=== PATIENT | female | born 1970 ===

== ENCOUNTER 2022-10-13 13:58 | Emergency (ER) | payer MEDICAID, SELFPAY ==
--- NOTE | ~2022-10-13 | XR_ITS ---
EXAMINATION: XR CHEST CLINICAL INFORMATION: Short of breath. Chest pain. COMPARISON: None TECHNIQUE: 2 views of the chest were obtained. FINDINGS: Median sternotomy wires appear intact. The lungs are well expanded. There is no focal consolidation, edema, or effusion. No pneumothorax. The cardiomediastinal silhouette is within normal limits. No acute osseous abnormality. XR/XR chest 2V IMPRESSION: Clear lungs.
[2022-10-13 14:31] VITALS: BP 123/81; PULSE 72; RESP 18; TEMP 37.3; O2SAT 100; BMI 21.4
--- NOTE | 2022-10-13 14:33 | ED_ITS ---
HPI - SOB/Dyspnea General Chief Complaint: Dyspnea <MONICA Mariee - Last Filed: 10/13/22 14:39> Stated Complaint: Difficulty breathing <MONICA Mariee - Last Filed: 10/13/22 14:39> Time Seen by Provider: 10/13/22 18:44 <MONICA Mariee - Last Filed: 10/13/22 14:39> Source: patient <rTupti Deleon MD - Last Filed: 10/13/22 20:13> Mode of arrival: ambulatory <Trupti Deleon MD - Last Filed: 10/13/22 20:13> Limitations: no limitations <Trupti Deleon MD - Last Filed: 10/13/22 20:13> History of Present Illness HPI Narrative: Patient comes in the emergency room complaining fatigue, cough for 3 days, shortness of breath. Patient states that approximately a week ago she moved from [facility]. Patient states that she has history of a mitral valve replacement which was done in the [place] [facility], seizure disorder, she has not had any of her medications, reports no recent seizures. Patient's family also reports that the patient has had a lot of anxiety lately. Patient states that occasionally she has chest tightness. At this time, patient reports no chest pain, shortness of breath or tightness. <Trupti Deleon MD - Last Filed: 10/13/22 20:13> Related Data Allergies/Adverse Reactions: Allergies Allergy/AdvReac Type Severity Reaction Status Date / Time lamotrigine [From Lamictal] Allergy Rash Verified 10/13/22 14:36 <MONICA Mariee - Last Filed: 10/13/22 14:39> Review of Systems Review of Systems: Constitutional : No Weight loss, No Fever, No Chills, No Night Sweats, complaining of fatigue ENT/Mouth : No Hearing loss, No Ear Pain, No Nasal Congestion, No Sinus Pain, No Hoarseness, No sore throat, No Rhinorrhea, No Swallowing Difficulty Eyes: No Eye Pain, No Swelling, No Redness, No Foreign Body, No Discharge, No Vision Changes Cardiovascular : Complaining of chest tightness, no chest pain, no shortness of breath Respiratory : Complaining of Cough, No Sputum, No Wheezing, No Smoke Exposure, No Dyspnea Gastrointestinal : No Nausea, No Vomiting, No Diarrhea, No Constipation, No abdominal Pain, No Hematochezia, No Melena Genitourinary : no irregular bleeding, No Dysuria, No Urinary Frequency, No Hematuria, No Urinary Incontinence, No Urgency, No Flank Pain, No Urinary Flow Changes, No Hesitancy Musculoskeletal : No joint pain, No Myalgias, No Joint Swelling Skin : No Skin Lesions, No rash Neuro : No Weakness, No Numbness, No Paresthesias, No Loss of Consciousness, No Dizziness, No Headache Psych : No Anxiety/Panic, No Depression, No SI/HI/AH/VH, No Social Issues, Heme/Lymph: No Bruising, No Bleeding,No Lymphadenopathy Endocrine : No Polyuria, No Polydipsia, No Temperature Intolerance <Trupti Deleon MD - Last Filed: 10/13/22 20:13> [facility], [facility] Past Medical History Medical History: Medical History (Updated 10/13/22 @ 20:13 by Trputi Deleon MD) Anxiety Seizure disorder <MONICA Mariee - Last Filed: 10/13/22 14:39> Surgical History: Surgical History (Updated 10/13/22 @ 18:57 by Trupti Deleon MD) Mitral valve replaced <MONICA Mariee - Last Filed: 10/13/22 14:39> Physical Exam Vital Signs: Vital Signs: Last Vital Signs Temp 99.2 F 10/13/22 14:31 Pulse 72 10/13/22 14:31 Resp 18 10/13/22 14:31 BP 123/81 10/13/22 14:31 Pulse Ox 100 10/13/22 14:31 O2 Del Method 10/13/22 14:31 BMI result Body Mass Index 21.4 <MONICA Mariee - Last Filed: 10/13/22 14:39> Vital Signs: Last Vital Signs Temp 99.2 F 10/13/22 14:31 Pulse 72 10/13/22 14:31 Resp 18 10/13/22 14:31 BP 123/81 10/13/22 14:31 Pulse Ox 100 10/13/22 14:31 O2 Del Method 10/13/22 14:31 BMI result Body Mass Index 21.4 <Trupti Deleon MD - Last Filed: 10/13/22 20:13> Const: Other: Appearance: Alert. Oriented X3. No acute distress. Eyes: Pupils equal, round and reactive to light. ENT: Pharynx normal. Neck: Normal inspection. Neck supple. No lymph nodes noted. No crepitus CVS: Normal heart rate and rhythm. Pulses normal. Normal S1 and S2, +3 systolic murmur left sternal border Respiratory: No respiratory distress. Breath sounds normal. No Wheezing. No rales Abdomen: Soft and nontender. No rigidity. No distention. Digital rectal exam: Brown stool Skin: Skin warm and dry. Normal skin color. Normal skin turgor. Extremities: No lower extremity edema. No Lacerations. No Rash Neuro: Oriented X 3. No motor deficit. No sensory deficit. Moving all extremities. No slurred speech. CN 2 through 12 grossly intact Psych: calm, cooperative, normal affect <Trupti Deleon MD - Last Filed: 10/13/22 20:13> Course Course Course Narrative: RME - 52 yo female with history of open heart surgery for mitral valve replacement, seizure disorder on keppra who presents to the ER for evaluation of fatigue and SOB, worsening over the last couple of days. Mild associated chest pain, difficulty taking a deep breath, and cough. Noncompliant with meds as she is new to the area and does not have any. VSS in triage. CXR, labs, EKG and viral swabs ordered. <MONICA Mariee - Last Filed: 10/13/22 14:39> Medical Decision Making Medical Decision Making MDM Narrative: -troponin 1. Is negative, we will go ahead and repeat troponin 2 due to patient's cardiac history. Patient does not have any chest pain at this time. Patient states she took full-dose aspirin prior to arrival. -troponin to pending -I discussed with the patient and her cousin that her hemoglobin is a bit on the lower side, we do not have any prior labs to compare to. Patient states that she has been told that she had is anemic and has had blood transfusions in the past. Patient does not know her reason for anemia, denies melena, black stool or abdominal pain. -occult stool test/guaiac pending -guaiac negative, troponin 2. Negative, chest x-ray shows clear lungs -patient likely has a viral syndrome. <Trupti Deleon MD - Last Filed: 10/13/22 20:13> Differential Diagnosis Differential Diagnoses: The differential diagnosis associated with the presentation includes (Viral syndrome, anemia, COVID) <Trupti Deleon MD - Last Filed: 10/13/22 20:13> Lab Data MDM Lab Attestation statement: I reviewed the patient's lab results. <Trupti Deleon MD - Last Filed: 10/13/22 20:13> Result Diagrams: 10/13/22 14:52 10/13/22 14:52 <MONICA Mariee - Last Filed: 10/13/22 14:39> Labs: Lab Results 10/13/22 10/13/22 10/13/22 Range/Units 14:52 14:52 14:52 WBC 3.6 L (4.8-10.8) X10*3/uL RBC 4.41 (4.20-5.50) X10*6/uL Hgb 10.0 L (12.0-16.0) g/dl Hct 29.5 L (37.0-47.0) % MCV 66.9 L (80.0-98.0) fL MCH 22.7 L (27.0-33.0) pg MCHC 33.9 (31.0-35.0) g/dl RDW 16.9 H (11.0-16.0) % Plt Count 169 (160-400) X10*3/uL MPV Not Reportable Immature Gran % (Auto) 0.0 (0.0-0.4) % Neut % (Auto) 43.3 L (45-73) % Lymph % (Auto) 43.5 H (20-40) % Crosby % (Auto) 9.3 (2-11) % Eos % (Auto) 3.1 (0-4) % Baso % (Auto) 0.8 (0-2) % Lymph # (Auto) 1.5 (1.2-4.9) X10*3/uL Crosby # (Auto) 0.3 (0.1-1.2) X10*3/uL Eos # (Auto) 0.1 (0.0-0.4) X10*3/uL Baso # (Auto) 0.0 (0.0-0.2) X10*3/uL Abs Immat Gran (auto) 0.00 (0.00-0.03) X10*3/uL Absolute Neuts (auto) 1.5 L (2.0-8.3) x10*3/uL Absolute Nucleated RBC 0.000 (0.0-0.012) X10*3/uL Nucleated RBC % (auto) 0.0 (0.0-0.2) /100WBC Sodium 140 (135-145) mmol/L Potassium 3.6 (3.3-5.1) mmol/L Chloride 107 (96-108) mmol/L Carbon Dioxide 25 (22-29) mmol/L Anion Gap 12 (12-20) BUN 12 (9-16) mg/dL Creatinine 0.71 (0.5-1.4) mg/dL Estim Creat Clear Calc 74.1 Estimated GFR > 60 Random Glucose 99 (60-115) mg/dL Calcium 9.1 (8.4-10.2) mg/dL Magnesium 1.8 (1.6-2.6) mg/dL Total Bilirubin 0.5 (0.0-1.0) mg/dL Direct Bilirubin 0.2 (0.0-0.5) mg/dL AST 21 (5-31) U/L ALT 11 (0-31) U/L Alkaline Phosphatase 45 (39-117) U/L Troponin I High Sens < 3.5 (<3.5-17.0) ng/L B-Natriuretic Peptide (<100) pg/mL Total Protein 6.8 (6.5-8.0) g/dL Albumin 4.0 (3.5-5.0) g/dL Stool Occult Blood (NEGATIVE) Influenza Type A (PCR) (Negative) Influenza Type B (PCR) (Negative) RSV RNA Qual (PCR) (Negative) SARS-CoV-2 RNA (RT-PCR) (Negative) 10/13/22 10/13/22 10/13/22 Range/Units 14:52 14:52 19:09 WBC (4.8-10.8) X10*3/uL RBC (4.20-5.50) X10*6/uL Hgb (12.0-16.0) g/dl Hct (37.0-47.0) % MCV (80.0-98.0) fL MCH (27.0-33.0) pg MCHC (31.0-35.0) g/dl RDW (11.0-16.0) % Plt Count (160-400) X10*3/uL MPV Immature Gran % (Auto) (0.0-0.4) % Neut % (Auto) (45-73) % Lymph % (Auto) (20-40) % Crosby % (Auto) (2-11) % Eos % (Auto) (0-4) % Baso % (Auto) (0-2) % Lymph # (Auto) (1.2-4.9) X10*3/uL Crosby # (Auto) (0.1-1.2) X10*3/uL Eos # (Auto) (0.0-0.4) X10*3/uL Baso # (Auto) (0.0-0.2) X10*3/uL Abs Immat Gran (auto) (0.00-0.03) X10*3/uL Absolute Neuts (auto) (2.0-8.3) x10*3/uL Absolute Nucleated RBC (0.0-0.012) X10*3/uL Nucleated RBC % (auto) (0.0-0.2) /100WBC Sodium (135-145) mmol/L Potassium (3.3-5.1) mmol/L Chloride (96-108) mmol/L Carbon Dioxide (22-29) mmol/L Anion Gap (12-20) BUN (9-16) mg/dL Creatinine (0.5-1.4) mg/dL Estim Creat Clear Calc Estimated GFR Random Glucose (60-115) mg/dL Calcium (8.4-10.2) mg/dL Magnesium (1.6-2.6) mg/dL Total Bilirubin (0.0-1.0) mg/dL Direct Bilirubin (0.0-0.5) mg/dL AST (5-31) U/L ALT (0-31) U/L Alkaline Phosphatase (39-117) U/L Troponin I High Sens < 3.5 (<3.5-17.0) ng/L B-Natriuretic Peptide 139 H (<100) pg/mL Total Protein (6.5-8.0) g/dL Albumin (3.5-5.0) g/dL Stool Occult Blood (NEGATIVE) Influenza Type A (PCR) NEGATIVE (Negative) Influenza Type B (PCR) NEGATIVE (Negative) RSV RNA Qual (PCR) NEGATIVE (Negative) SARS-CoV-2 RNA (RT-PCR) NEGATIVE (Negative) 10/13/22 Range/Units 19:10 WBC (4.8-10.8) X10*3/uL RBC (4.20-5.50) X10*6/uL Hgb (12.0-16.0) g/dl Hct (37.0-47.0) % MCV (80.0-98.0) fL MCH (27.0-33.0) pg MCHC (31.0-35.0) g/dl RDW (11.0-16.0) % Plt Count (160-400) X10*3/uL MPV Immature Gran % (Auto) (0.0-0.4) % Neut % (Auto) (45-73) % Lymph % (Auto) (20-40) % Crosby % (Auto) (2-11) % Eos % (Auto) (0-4) % Baso % (Auto) (0-2) % Lymph # (Auto) (1.2-4.9) X10*3/uL Crosby # (Auto) (0.1-1.2) X10*3/uL Eos # (Auto) (0.0-0.4) X10*3/uL Baso # (Auto) (0.0-0.2) X10*3/uL Abs Immat Gran (auto) (0.00-0.03) X10*3/uL Absolute Neuts (auto) (2.0-8.3) x10*3/uL Absolute Nucleated RBC (0.0-0.012) X10*3/uL Nucleated RBC % (auto) (0.0-0.2) /100WBC Sodium (135-145) mmol/L Potassium (3.3-5.1) mmol/L Chloride (96-108) mmol/L Carbon Dioxide (22-29) mmol/L Anion Gap (12-20) BUN (9-16) mg/dL Creatinine (0.5-1.4) mg/dL Estim Creat Clear Calc Estimated GFR Random Glucose (60-115) mg/dL Calcium (8.4-10.2) mg/dL Magnesium (1.6-2.6) mg/dL Total Bilirubin (0.0-1.0) mg/dL Direct Bilirubin (0.0-0.5) mg/dL AST (5-31) U/L ALT (0-31) U/L Alkaline Phosphatase (39-117) U/L Troponin I High Sens (<3.5-17.0) ng/L B-Natriuretic Peptide (<100) pg/mL Total Protein (6.5-8.0) g/dL Albumin (3.5-5.0) g/dL Stool Occult Blood NEGATIVE (NEGATIVE) Influenza Type A (PCR) (Negative) Influenza Type B (PCR) (Negative) RSV RNA Qual (PCR) (Negative) SARS-CoV-2 RNA (RT-PCR) (Negative) <MONICA Mariee - Last Filed: 10/13/22 14:39> Lab Results 10/13/22 10/13/22 10/13/22 Range/Units 14:52 14:52 14:52 WBC 3.6 L (4.8-10.8) X10*3/uL RBC 4.41 (4.20-5.50) X10*6/uL Hgb 10.0 L (12.0-16.0) g/dl Hct 29.5 L (37.0-47.0) % MCV 66.9 L (80.0-98.0) fL MCH 22.7 L (27.0-33.0) pg MCHC 33.9 (31.0-35.0) g/dl RDW 16.9 H (11.0-16.0) % Plt Count 169 (160-400) X10*3/uL MPV Not Reportable Immature Gran % (Auto) 0.0 (0.0-0.4) % Neut % (Auto) 43.3 L (45-73) % Lymph % (Auto) 43.5 H (20-40) % Crosby % (Auto) 9.3 (2-11) % Eos % (Auto) 3.1 (0-4) % Baso % (Auto) 0.8 (0-2) % Lymph # (Auto) 1.5 (1.2-4.9) X10*3/uL Crosby # (Auto) 0.3 (0.1-1.2) X10*3/uL Eos # (Auto) 0.1 (0.0-0.4) X10*3/uL Baso # (Auto) 0.0 (0.0-0.2) X10*3/uL Abs Immat Gran (auto) 0.00 (0.00-0.03) X10*3/uL Absolute Neuts (auto) 1.5 L (2.0-8.3) x10*3/uL Absolute Nucleated RBC 0.000 (0.0-0.012) X10*3/uL Nucleated RBC % (auto) 0.0 (0.0-0.2) /100WBC Sodium 140 (135-145) mmol/L Potassium 3.6 (3.3-5.1) mmol/L Chloride 107 (96-108) mmol/L Carbon Dioxide 25 (22-29) mmol/L Anion Gap 12 (12-20) BUN 12 (9-16) mg/dL Creatinine 0.71 (0.5-1.4) mg/dL Estim Creat Clear Calc 74.1 Estimated GFR > 60 Random Glucose 99 (60-115) mg/dL Calcium 9.1 (8.4-10.2) mg/dL Magnesium 1.8 (1.6-2.6) mg/dL Total Bilirubin 0.5 (0.0-1.0) mg/dL Direct Bilirubin 0.2 (0.0-0.5) mg/dL AST 21 (5-31) U/L ALT 11 (0-31) U/L Alkaline Phosphatase 45 (39-117) U/L Troponin I High Sens < 3.5 (<3.5-17.0) ng/L B-Natriuretic Peptide (<100) pg/mL Total Protein 6.8 (6.5-8.0) g/dL Albumin 4.0 (3.5-5.0) g/dL Stool Occult Blood (NEGATIVE) Influenza Type A (PCR) (Negative) Influenza Type B (PCR) (Negative) RSV RNA Qual (PCR) (Negative) SARS-CoV-2 RNA (RT-PCR) (Negative) 01/10/13/22 10/13/22 Range/Units 14:52 14:52 19:09 WBC (4.8-10.8) X10*3/uL RBC (4.20-5.50) X10*6/uL Hgb (12.0-16.0) g/dl Hct (37.0-47.0) % MCV (80.0-98.0) fL MCH (27.0-33.0) pg MCHC (31.0-35.0) g/dl RDW (11.0-16.0) % Plt Count (160-400) X10*3/uL MPV Immature Gran % (Auto) (0.0-0.4) % Neut % (Auto) (45-73) % Lymph % (Auto) (20-40) % Crosby % (Auto) (2-11) % Eos % (Auto) (0-4) % Baso % (Auto) (0-2) % Lymph # (Auto) (1.2-4.9) X10*3/uL Crosby # (Auto) (0.1-1.2) X10*3/uL Eos # (Auto) (0.0-0.4) X10*3/uL Baso # (Auto) (0.0-0.2) X10*3/uL Abs Immat Gran (auto) (0.00-0.03) X10*3/uL Absolute Neuts (auto) (2.0-8.3) x10*3/uL Absolute Nucleated RBC (0.0-0.012) X10*3/uL Nucleated RBC % (auto) (0.0-0.2) /100WBC Sodium (135-145) mmol/L Potassium (3.3-5.1) mmol/L Chloride (96-108) mmol/L Carbon Dioxide (22-29) mmol/L Anion Gap (12-20) BUN (9-16) mg/dL Creatinine (0.5-1.4) mg/dL Estim Creat Clear Calc Estimated GFR Random Glucose (60-115) mg/dL Calcium (8.4-10.2) mg/dL Magnesium (1.6-2.6) mg/dL Total Bilirubin (0.0-1.0) mg/dL Direct Bilirubin (0.0-0.5) mg/dL AST (5-31) U/L ALT (0-31) U/L Alkaline Phosphatase (39-117) U/L Troponin I High Sens < 3.5 (<3.5-17.0) ng/L B-Natriuretic Peptide 139 H (<100) pg/mL Total Protein (6.5-8.0) g/dL Albumin (3.5-5.0) g/dL Stool Occult Blood (NEGATIVE) Influenza Type A (PCR) NEGATIVE (Negative) Influenza Type B (PCR) NEGATIVE (Negative) RSV RNA Qual (PCR) NEGATIVE (Negative) SARS-CoV-2 RNA (RT-PCR) NEGATIVE (Negative) 10/13/22 Range/Units 19:10 WBC (4.8-10.8) X10*3/uL RBC (4.20-5.50) X10*6/uL Hgb (12.0-16.0) g/dl Hct (37.0-47.0) % MCV (80.0-98.0) fL MCH (27.0-33.0) pg MCHC (31.0-35.0) g/dl RDW (11.0-16.0) % Plt Count (160-400) X10*3/uL MPV Immature Gran % (Auto) (0.0-0.4) % Neut % (Auto) (45-73) % Lymph % (Auto) (20-40) % Crosby % (Auto) (2-11) % Eos % (Auto) (0-4) % Baso % (Auto) (0-2) % Lymph # (Auto) (1.2-4.9) X10*3/uL Crosby # (Auto) (0.1-1.2) X10*3/uL Eos # (Auto) (0.0-0.4) X10*3/uL Baso # (Auto) (0.0-0.2) X10*3/uL Abs Immat Gran (auto) (0.00-0.03) X10*3/uL Absolute Neuts (auto) (2.0-8.3) x10*3/uL Absolute Nucleated RBC (0.0-0.012) X10*3/uL Nucleated RBC % (auto) (0.0-0.2) /100WBC Sodium (135-145) mmol/L Potassium (3.3-5.1) mmol/L Chloride (96-108) mmol/L Carbon Dioxide (22-29) mmol/L Anion Gap (12-20) BUN (9-16) mg/dL Creatinine (0.5-1.4) mg/dL Estim Creat Clear Calc Estimated GFR Random Glucose (60-115) mg/dL Calcium (8.4-10.2) mg/dL Magnesium (1.6-2.6) mg/dL Total Bilirubin (0.0-1.0) mg/dL Direct Bilirubin (0.0-0.5) mg/dL AST (5-31) U/L ALT (0-31) U/L Alkaline Phosphatase (39-117) U/L Troponin I High Sens (<3.5-17.0) ng/L B-Natriuretic Peptide (<100) pg/mL Total Protein (6.5-8.0) g/dL Albumin (3.5-5.0) g/dL Stool Occult Blood NEGATIVE (NEGATIVE) Influenza Type A (PCR) (Negative) Influenza Type B (PCR) (Negative) RSV RNA Qual (PCR) (Negative) SARS-CoV-2 RNA (RT-PCR) (Negative) <Trupti Deleon MD - Last Filed: 10/13/22 20:13> Independent Interpretation I performed an independent interpretation of an: EKG (Sinus bradycardia, heart rate 59, no ST segment depression or elevation, no T-wave inversion, QTC 441) and Plain X-Ray (Sternotomy wires present, no infiltrates) <Trupti Deleon MD - Last Filed: 10/13/22 20:13> Radiology Impression Radiologist Impression: FINDINGS: Median sternotomy wires appear intact. The lungs are well expanded. There is no focal consolidation, edema, or effusion. No pneumothorax. The cardiomediastinal silhouette is within normal limits. No acute osseous abnormality. XR/XR chest 2V IMPRESSION: Clear lungs. <Trupti Deleon MD - Last Filed: 10/13/22 20:13> Discharge Plan Discharge Clinical Impression: Acute viral syndrome, Chronic anemia <MONICA Mariee - Last Filed: 10/13/22 14:39> Patient Disposition: Home, Self-Care <MONICA Mariee - Last Filed: 10/13/22 14:39> Instructions: Viral Syndrome (ED) <MONICA Mariee - Last Filed: 10/13/22 14:39> Additional Instructions: Please follow-up with your primary care physician tomorrow. If you have any worsening or new symptoms, please return to the emergency room or call 911 <MONICA Mariee - Last Filed: 10/13/22 14:39> Referrals: Jacky Moran MD [Physician] - 2 days (establish care) Bryan Garces MD [Physician] - 3 days <MONICA Mariee - Last Filed: 10/13/22 14:39>
--- NOTE | 2022-10-13 14:38 | ECG_ITS ---
Test Reason : CP Blood Pressure : / mmHG Vent. Rate : 059 BPM Atrial Rate : 059 BPM P-R Int : 168 ms QRS Dur : 076 ms QT Int : 446 ms P-R-T Axes : 034 073 056 degrees QTc Int : 441 ms Sinus bradycardia Possible Left atrial enlargement Borderline ECG No previous ECGs available Referred By: Rose Slade Electronically Signed By:HERRERA TOWNSEND
[2022-10-13 15:01] LABS: MANUAL DIFF FLAG NO
[2022-10-13 15:04] LABS: Basophils Percent Auto 0.8 % (0-2); Eosinophils Absolute Auto 0.1 X10*3/uL (0.0-0.4); Eosinophils Percent Auto 3.1 % (0-4); SCAN SMEAR FLAG 1
[2022-10-13 15:06] LABS: Hematocrit 29.5 % (37.0-47.0); Lymphocytes Absolute Auto 1.5 X10*3/uL (1.2-4.9); Lymphocytes Percent Auto 43.5 % (20-40); Mean Corpuscular HGB Conc 33.9 g/dl (31.0-35.0); Mean Corpuscular Hemoglobin 22.7 pg (27.0-33.0); Mean Corpuscular Volume 66.9 fL (80.0-98.0); Monocytes Absolute Auto 0.3 X10*3/uL (0.1-1.2); Monocytes Percent Auto 9.3 % (2-11); Neutrophils Absolute Auto 1.5 x10*3/uL (2.0-8.3); Neutrophils Percent Auto 43.3 % (45-73); Platelet Count 169 X10*3/uL (160-400); Red Blood Count 4.41 X10*6/uL (4.20-5.50); Red Cell Distribution Width 16.9 % (11.0-16.0); WBC ABN SCTR 1
[2022-10-13 15:26] LABS: Alanine Aminotransferase 11 U/L (0-31); Alkaline Phosphatase 45 U/L (39-117); Anion Gap 12 (12-20); Aspartate Amino Transferase 21 U/L (5-31); Bilirubin Direct 0.2 mg/dL (0.0-0.5); Bilirubin Total 0.5 mg/dL (0.0-1.0); Blood Urea Nitrogen 12 mg/dL (9-16); Calcium 9.1 mg/dL (8.4-10.2); Carbon Dioxide 25 mmol/L (22-29); Chloride 107 mmol/L (96-108); Creatinine Clr Calc Pharmacy 74.1; Estimated Glomerular Filt Rate > 60; Glucose Random 99 mg/dL (60-115); Magnesium 1.8 mg/dL (1.6-2.6); Potassium 3.6 mmol/L (3.3-5.1); Sodium 140 mmol/L (135-145); Total Protein 6.8 g/dL (6.5-8.0)
[2022-10-13 15:31] LABS: B Type Natriuretic Peptide 139 pg/mL (<100)
[2022-10-13 15:35] LABS: Troponin-I High Sensitivity < 3.5 ng/L (<3.5-17.0)
[2022-10-13 15:37] LABS: PLT ABN DIST 1; WBC ABN SCTR FOR CBC 1
[2022-10-13 15:39] LABS: White Blood Count 3.6 X10*3/uL (4.8-10.8)
[2022-10-13 15:53] LABS: Influenza A PCR NEGATIVE (Negative); Influenza B PCR NEGATIVE (Negative); Resp Syncy Virus RNA Qual PCR NEGATIVE (Negative); SARS COV2 PCR INHOUSE NEGATIVE (Negative)
--- NOTE | 2022-10-13 19:06 | PC.NURSE ---
assumed care of pt aox4 this nurse was present when Dr Deleon obtained stool sample for occult blood test no apparent distress, pt watching tv while resting quietly
[2022-10-13 19:22] LABS: OBS Int Ctl Valid YES; OBS1 NEGATIVE (NEGATIVE)
[2022-10-13 19:41] LABS: Troponin-I High Sensitivity < 3.5 ng/L (<3.5-17.0)
--- NOTE | 2022-10-13 20:39 | PC.NURSE ---
Pt a&o, no sob or chest pain. Reviewed discharge instructions with patient. pt verbalized understanding. Notified SABINO Engle
== END 2022-10-13 20:40 | disposition home or self-care (01) ==
PROVIDERS: Physician Assistant; Emergency Provider Emergency Medicine
DX: B34.9 Viral infection, unspecified (principal); D64.9 Anemia, unspecified; R07.89 Other chest pain; R06.02 Shortness of breath; R05.9 Cough, unspecified; Z20.822 Contact with and (suspected) exposure to COVID-19; Z20.828 Contact with and (suspected) exposure to other viral communicable diseases; Z79.899 Other long term (current) drug therapy
CPT/HCPCS: 0241U; 36415; 71046; 80048; 80076; 82272; 83735; 83880; 84484; 85025; 93005; 99283

== ENCOUNTER 2023-01-08 07:43 | Outpatient (REF) | payer MEDICAID, SELFPAY ==
[2023-01-08 10:58] LABS: MANUAL DIFF FLAG NO
[2023-01-08 11:06] LABS: Basophils Percent Auto 0.7 % (0-2); Eosinophils Absolute Auto 0.1 X10*3/uL (0.0-0.4); Eosinophils Percent Auto 2.5 % (0-4); Hematocrit 35.1 % (37.0-47.0); Hemoglobin 11.9 g/dl (12.0-16.0); Lymphocytes Percent Auto 49.4 % (20-40); Mean Corpuscular HGB Conc 33.9 g/dl (31.0-35.0); Mean Corpuscular Hemoglobin 24.3 pg (27.0-33.0); Mean Corpuscular Volume 71.8 fL (80.0-98.0); Monocytes Absolute Auto 0.5 X10*3/uL (0.1-1.2); Neutrophils Absolute Auto 1.4 x10*3/uL (2.0-8.3); Neutrophils Percent Auto 35.4 % (45-73); Platelet Count 179 X10*3/uL (160-400); Red Blood Count 4.89 X10*6/uL (4.20-5.50); White Blood Count 4.1 X10*3/uL (4.8-10.8)
[2023-01-08 11:24] LABS: Alanine Aminotransferase 19 U/L (0-31); Albumin Level 4.1 g/dL (3.5-5.0); Alkaline Phosphatase 47 U/L (39-117); Anion Gap 12 (12-20); Aspartate Amino Transferase 19 U/L (5-31); Bilirubin Total 0.8 mg/dL (0.0-1.0); Blood Urea Nitrogen 7 mg/dL (9-16); Calcium 9.2 mg/dL (8.4-10.2); Carbon Dioxide 27 mmol/L (22-29); Chloride 106 mmol/L (96-108); Cholesterol 234 mg/dL; Estimated Glomerular Filt Rate > 60; Glucose Fasting 86 mg/dL (60-99); HDL Cholesterol 54 mg/dL; LDL Cholesterol Calculated 167 mg/dl; Sodium 141 mmol/L (135-145); Triglycerides 68 mg/dL
[2023-01-08 11:40] LABS: Thyroid Stimulating Hormone 1.92 uIU/mL (0.32-4.0)
== END 2023-01-08 07:44 | disposition home or self-care (01) ==
LOC: HO.10HDL 07:43
PROVIDERS: Visit Provider Internal Medicine
DX: Z00.00 Encounter for general adult medical examination without abnormal findings (principal); R51.9 Headache, unspecified; H53.8 Other visual disturbances; G40.109 Localization-related (focal) (partial) symptomatic epilepsy and epileptic syndromes with simple partial seizures, not intractable, without status epilepticus; F32.2 Major depressive disorder, single episode, severe without psychotic features
CPT/HCPCS: 36415; 80053; 80061; 84443; 85025

== ENCOUNTER 2023-01-10 12:34 | Emergency (ER) | payer MEDICAID, SELFPAY ==
--- NOTE | ~2023-01-10 | XR_ITS ---
EXAMINATION: XR SOFT TISSUE NECK CLINICAL INDICATION: Pain in the side of the neck COMPARISON: None available. TECHNIQUE: 2 views of the soft tissue neck were obtained. FINDINGS: Soft tissue films of the neck demonstrate a normal larynx, pharynx and upper trachea. No soft tissue swelling or opaque foreign body is demonstrated. XR/XR soft tissue neck IMPRESSION: Unremarkable examination.
--- NOTE | ~2023-01-10 | XR_ITS ---
EXAMINATION: XR CHEST CLINICAL INFORMATION: Pain in the neck going into the chest COMPARISON: Chest x-ray on 10/13/2022 TECHNIQUE: 2 views of the chest were obtained. FINDINGS: No significant abnormality is noted involving the heart, lungs, mediastinum, bony thorax or soft tissues. Prior median sternotomy. XR/XR chest 2V IMPRESSION: Unremarkable examination.
[2023-01-10 12:42] VITALS: BP 131/88; PULSE 65; RESP 16; TEMP 37; O2SAT 100; BMI 24.2
--- NOTE | 2023-01-10 12:43 | ED_ITS ---
HPI - General Adult General Chief complaint: General Medical <Marshall Amezcua - Last Filed: 01/10/23 12:49> Stated complaint: Neck pain <Marshall Amezcua - Last Filed: 01/10/23 12:49> Time Seen by Provider: 01/10/23 13:09 <Marshall Amezcua - Last Filed: 01/10/23 12:49> History of Present Illness HPI narrative: Patient complains of neck pain that has been going on for months but now the pain is radiating into her left shoulder She had a mitral valve procedure many years ago and is concerned about her heart as a cousin recently passed from heart disease She denies any chest pain no exertional symptoms no shortness of breath no vomiting no diaphoresis no fainting no feeling faint no confusion no headache The neck pain is worse with movement and has been going on for a long time it is bilateral it hurts in both trapezius and lateral neck muscles She has no difficulty breathing or swallowing there is no numbness weakness tingling or radiation of pain no changes to bowel or bladder no muscle weakness no loss of sensation No associated back pain no abdominal pain no nausea vomiting or diarrhea <MONICA Monk - Last Filed: 01/10/23 16:54> Related Data Home medications: Previous Rx's Medication Instructions Recorded cyclobenzaprine 5 mg tablet 5 mg PO TID PRN muscle spasm #14 01/10/23 tabs ibuprofen 600 mg tablet 600 mg PO Q6H PRN pain #20 tabs 01/10/23 oxycodone 5 mg tablet 5 mg PO Q6H PRN pain #10 tabs 01/10/23 <Marshall Amezcua - Last Filed: 01/10/23 12:49> Allergies/adverse reactions: Allergies Allergy/AdvReac Type Severity Reaction Status Date / Time lamotrigine [From Lamictal] Allergy Rash Verified 10/13/22 14:36 <Marshall Amezcua - Last Filed: 01/10/23 12:49> [facility] Past Medical History [facility] Narrative: Patient has history of mitral valve replacement done years ago, no history of coronary artery disease <MONICA Monk - Last Filed: 01/10/23 16:54> Medical History: Medical History (Updated 01/10/23 @ 16:39 by MONICA Monk) Anxiety Seizure disorder <Marshall Amezcua - Last Filed: 01/10/23 12:49> Surgical History: Surgical History (Updated 10/13/22 @ 18:57 by Trupti Deleon MD) Mitral valve replaced <Marshall Seven - Last Filed: 01/10/23 12:49> Social History Social History: Social History Advance Directives: No Advance Directives Information Provided: No <Marshall Seven - Last Filed: 01/10/23 12:49> Physical Exam ED Vital Signs: Vital Signs - 24 hr 01/10/23 12:42 01/10/23 15:47 Temperature 98.6 F 98.3 F Pulse Rate 65 55 Respiratory Rate 16 18 Blood Pressure 131/88 135/83 Pulse Oximetry 100 100 Oxygen Delivery Method Room Air Room Air BMI result Body Mass Index 24.2 <Marshall Seven - Last Filed: 01/10/23 12:49> Vital Signs - 24 hr 01/10/23 12:42 01/10/23 15:47 Temperature 98.6 F 98.3 F Pulse Rate 65 55 Respiratory Rate 16 18 Blood Pressure 131/88 135/83 Pulse Oximetry 100 100 Oxygen Delivery Method Room Air Room Air BMI result Body Mass Index 24.2 <MONICA Monk - Last Filed: 01/10/23 16:54> General appearance no acute distress Eyes anicteric no pallor Pharynx no redness swelling or exudate mucous membranes are moist voice is normal no impairment of breathing or swallowing The neck was supple but there was discomfort with lateral movement both left and right, there was tenderness bilaterally to trapezius muscles and bilateral soft tissue neck muscles, there was no rash or redness to the skin Pain is easily reproduced with movement of the neck The chest wall was nontender There lungs were clear to auscultation bilateral full symmetric equal breath sounds Heart no murmur rate and rhythm regular Abdomen soft nontender Extremities no edema no calf tenderness or swelling Skin no rashes <MONICA Monk - Last Filed: 01/10/23 16:54> Course Course Course Narrative: 52 year old female presents for evaluation of bilateral neck pain. Denies trauma. She states that she has chronic neck pain that usually improves with Aspirin, but since yesterday the pain does not improve with aspirin. Denies sore throat or chest pain. Patient expresses concern over CAD due to family history. Patient has a flat affect and is a poor historian <Marshall Amezcua - Last Filed: 01/10/23 12:49> 52 year old female presents for evaluation of bilateral neck pain. Denies trauma. She states that she has chronic neck pain that usually improves with Aspirin, but since yesterday the pain does not improve with aspirin. Denies sore throat or chest pain. Patient expresses concern over CAD due to family history. Patient has a flat affect and is a poor historian Patient with easily reproducible musculoskeletal bilateral neck pain radiating into both shoulders was very concerned about her heart as she had a valve replacement of the mitral valve years ago and 2 of her close family members have of heart attacks in recent months She is not experiencing chest pain, she has no exertional symptoms no shortness of breath, no diaphoresis so symptoms are very atypical for cardiac disease EKG was a normal sinus rhythm with a rate of 60, FL interval was normal QRS duration was normal QTC normal EKG showed questionable left atrial enlargement, there were no acute ST changes no acute ischemic changes Troponin was under 2.7, negative for heart attack Chest x-ray and soft tissue neck x-rays were normal Chemistry showed no acute abnormalities CBC no acute abnormality Patient's symptoms are likely musculoskeletal neck pain, and some anxiety about the loss of her 2 family members from cardiac disease, today there is no evidence of heart attack and symptoms are very unlikely to be cardiac Well-appearing patient without cardiac symptoms no shortness of breath no chest pain is discharged diagnosis musculoskeletal neck pain <MONICA Monk - Last Filed: 01/10/23 16:54> Medical Decision Making Lab Data MDM Lab Attestation statement: I reviewed the patient's lab results. <MONICA Monk - Last Filed: 01/10/23 16:54> Result Diagrams: 01/10/23 15:41 01/10/23 15:41 <Marshall Amezcua - Last Filed: 01/10/23 12:49> Labs: Lab Results 01/10/23 01/10/23 01/10/23 Range/Units 15:41 15:41 15:41 WBC 3.9 L (4.8-10.8) X10*3/uL RBC 5.20 (4.20-5.50) X10*6/uL Hgb 12.7 (12.0-16.0) g/dl Hct 36.4 L (37.0-47.0) % MCV 70.0 L (80.0-98.0) fL MCH 24.4 L (27.0-33.0) pg MCHC 34.9 (31.0-35.0) g/dl RDW 23.0 H (11.0-16.0) % Plt Count 172 (160-400) X10*3/uL MPV Not Reportable Immature Gran % (Auto) Cancelled Neut % (Auto) Cancelled Lymph % (Auto) Cancelled [place] % (Auto) Cancelled Eos % (Auto) Cancelled Baso % (Auto) Cancelled Lymph # (Auto) Cancelled [place] # (Auto) Cancelled Eos # (Auto) Cancelled Baso # (Auto) Cancelled Abs Immat Gran (auto) Cancelled Absolute Neuts (auto) Cancelled Absolute Nucleated RBC 0.000 (0.0-0.012) X10*3/uL Nucleated RBC % (auto) 0.0 (0.0-0.2) /100WBC Neutrophils % (Manual) 52 (45-73) % Band Neutrophils % 0 L (3-5) % Lymphocytes % (Manual) 39 (20-40) % Monocytes % (Manual) 7 (2-11) % Eosinophils % (Manual) 2 (0-4) % Abs Neuts (Manual) 2.0 (2.0-8.3) X10*3/uL Lymphocytes # (Manual) 1.5 (1.2-4.9) X10*3/uL Monocytes # (Manual) 0.3 (0.1-1.2) X10*3/uL Eosinophils # (Manual) 0.1 (0.0-0.4) X10*3/uL Platelet Estimate NORMAL (NORMAL) Plt Morphology Comment NORMAL RBC Morphology NOTED Target Cells 1+ (5-14) /OIF Sodium 139 (135-145) mmol/L Potassium 3.5 (3.3-5.1) mmol/L Chloride 105 (96-108) mmol/L Carbon Dioxide 26 (22-29) mmol/L Anion Gap 12 (12-20) BUN 10 (9-16) mg/dL Creatinine 0.68 (0.5-1.4) mg/dL Estim Creat Clear Calc 77.4 Estimated GFR > 60 Random Glucose 84 (60-115) mg/dL Calcium 9.3 (8.4-10.2) mg/dL Total Bilirubin 0.8 (0.0-1.0) mg/dL Direct Bilirubin 0.2 (0.0-0.5) mg/dL AST 24 (5-31) U/L ALT 22 (0-31) U/L Alkaline Phosphatase 49 (39-117) U/L Troponin I High Sens < 2.7 (<3.5-17.0) ng/L Total Protein 7.4 (6.5-8.0) g/dL Albumin 4.4 (3.5-5.0) g/dL <Marshall Amezcua - Last Filed: 01/10/23 12:49> Lab Results 01/10/23 01/10/23 01/10/23 Range/Units 15:41 15:41 15:41 WBC 3.9 L (4.8-10.8) X10*3/uL RBC 5.20 (4.20-5.50) X10*6/uL Hgb 12.7 (12.0-16.0) g/dl Hct 36.4 L (37.0-47.0) % MCV 70.0 L (80.0-98.0) fL MCH 24.4 L (27.0-33.0) pg MCHC 34.9 (31.0-35.0) g/dl RDW 23.0 H (11.0-16.0) % Plt Count 172 (160-400) X10*3/uL MPV Not Reportable Immature Gran % (Auto) Cancelled Neut % (Auto) Cancelled Lymph % (Auto) Cancelled [place] % (Auto) Cancelled Eos % (Auto) Cancelled Baso % (Auto) Cancelled Lymph # (Auto) Cancelled [place] # (Auto) Cancelled Eos # (Auto) Cancelled Baso # (Auto) Cancelled Abs Immat Gran (auto) Cancelled Absolute Neuts (auto) Cancelled Absolute Nucleated RBC 0.000 (0.0-0.012) X10*3/uL Nucleated RBC % (auto) 0.0 (0.0-0.2) /100WBC Neutrophils % (Manual) 52 (45-73) % Band Neutrophils % 0 L (3-5) % Lymphocytes % (Manual) 39 (20-40) % Monocytes % (Manual) 7 (2-11) % Eosinophils % (Manual) 2 (0-4) % Abs Neuts (Manual) 2.0 (2.0-8.3) X10*3/uL Lymphocytes # (Manual) 1.5 (1.2-4.9) X10*3/uL Monocytes # (Manual) 0.3 (0.1-1.2) X10*3/uL Eosinophils # (Manual) 0.1 (0.0-0.4) X10*3/uL Platelet Estimate NORMAL (NORMAL) Plt Morphology Comment NORMAL RBC Morphology NOTED Target Cells 1+ (5-14) /OIF Sodium 139 (135-145) mmol/L Potassium 3.5 (3.3-5.1) mmol/L Chloride 105 (96-108) mmol/L Carbon Dioxide 26 (22-29) mmol/L Anion Gap 12 (12-20) BUN 10 (9-16) mg/dL Creatinine 0.68 (0.5-1.4) mg/dL Estim Creat Clear Calc 77.4 Estimated GFR > 60 Random Glucose 84 (60-115) mg/dL Calcium 9.3 (8.4-10.2) mg/dL Total Bilirubin 0.8 (0.0-1.0) mg/dL Direct Bilirubin 0.2 (0.0-0.5) mg/dL AST 24 (5-31) U/L ALT 22 (0-31) U/L Alkaline Phosphatase 49 (39-117) U/L Troponin I High Sens < 2.7 (<3.5-17.0) ng/L Total Protein 7.4 (6.5-8.0) g/dL Albumin 4.4 (3.5-5.0) g/dL <MONICA Monk - Last Filed: 01/10/23 16:54> Discharge Plan Discharge Clinical Impression: Neck pain <Marshall Amezcua - Last Filed: 01/10/23 12:49> Patient Disposition: Home, Self-Care <Marshall Amezcua - Last Filed: 01/10/23 12:49> Additional Instructions: Our workup today showed an EKG without any evidence of heart trouble The blood test troponin to check for heart attack was totally normal The symptoms are not typical symptoms of anything to do with your heart Her physical exam and vital signs were normal Blood tests did not show any worrisome findings We wrote a muscle relaxer and some pain medicine to use if needed Follow with primary doctor both for referral to environmental sustainability manager if needed as well as possible referral for physical therapy and further evaluation of her ongoing neck pain Return to the ER any time for any worse condition or any concerns <Marshall Amezcua - Last Filed: 01/10/23 12:49> Prescriptions: New ibuprofen 600 mg tablet 600 mg PO Q6H PRN (Reason: pain) Qty: 20 0RF cyclobenzaprine 5 mg tablet 5 mg PO TID PRN (Reason: muscle spasm) Qty: 14 0RF oxycodone 5 mg tablet 5 mg PO Q6H PRN (Reason: pain) Qty: 10 0RF Rx Instructions: Partial Fill upon patient request. <Marshall Amezcua - Last Filed: 01/10/23 12:49> Interventions: ED Discharge Assessment Last Done: 01/10/23 16:52 <Marshall Amezcua - Last Filed: 01/10/23 12:49> Discharge Date/Time: 01/10/23 16:53 <Marshall Amezcua - Last Filed: 01/10/23 12:49>
--- NOTE | 2023-01-10 12:48 | ECG_ITS ---
Test Reason : PAIN Blood Pressure : / mmHG Vent. Rate : 060 BPM Atrial Rate : 060 BPM P-R Int : 168 ms QRS Dur : 080 ms QT Int : 442 ms P-R-T Axes : 050 079 062 degrees QTc Int : 442 ms Normal sinus rhythm Possible Left atrial enlargement Borderline ECG When compared to the previous EKG of No significant changes seen Referred By: Marshall Amezcua Electronically Signed By:Jacky Moran
--- NOTE | 2023-01-10 14:59 | PC.NURSE ---
pt in xray
[2023-01-10 15:47] VITALS: BP 135/83; PULSE 55; RESP 18; TEMP 36.8; O2SAT 100
[2023-01-10 15:51] LABS: Hematocrit 36.4 % (37.0-47.0); Hemoglobin 12.7 g/dl (12.0-16.0); Mean Corpuscular HGB Conc 34.9 g/dl (31.0-35.0); Mean Corpuscular Hemoglobin 24.4 pg (27.0-33.0); Platelet Count 172 X10*3/uL (160-400)
[2023-01-10 15:54] LABS: WBC ABN SCTR FOR CBC 1
[2023-01-10 16:01] LABS: Alanine Aminotransferase 22 U/L (0-31); Albumin Level 4.4 g/dL (3.5-5.0); Alkaline Phosphatase 49 U/L (39-117); Anion Gap 12 (12-20); Aspartate Amino Transferase 24 U/L (5-31); Bilirubin Direct 0.2 mg/dL (0.0-0.5); Bilirubin Total 0.8 mg/dL (0.0-1.0); Blood Urea Nitrogen 10 mg/dL (9-16); Calcium 9.3 mg/dL (8.4-10.2); Carbon Dioxide 26 mmol/L (22-29); Chloride 105 mmol/L (96-108); Creatinine Clr Calc Pharmacy 77.4; Estimated Glomerular Filt Rate > 60; Glucose Random 84 mg/dL (60-115); Potassium 3.5 mmol/L (3.3-5.1); Sodium 139 mmol/L (135-145); Total Protein 7.4 g/dL (6.5-8.0)
[2023-01-10 16:10] LABS: Troponin-I High Sensitivity < 2.7 ng/L (<3.5-17.0)
[2023-01-10 16:14] LABS: White Blood Count 3.9 X10*3/uL (4.8-10.8)
[2023-01-10 16:21] LABS: Eosinophils Absolute Manual 0.1 X10*3/uL (0.0-0.4); Eosinophils Percent Manual 2 % (0-4); Lymphocytes Absolute Manual 1.5 X10*3/uL (1.2-4.9); Lymphocytes Percent Manual 39 % (20-40); Monocytes Absolute Manual 0.3 X10*3/uL (0.1-1.2); Monocytes Percent Manual 7 % (2-11); Neutrophils Percent Manual 52 % (45-73)
[2023-01-10 16:23] LABS: RBC Morphology NOTED; Target Cells 1+ (5-14) /OIF
[2023-01-10 16:24] LABS: Platelet Estimate NORMAL (NORMAL); Platelet Morphology Comment NORMAL
[2023-01-10 16:28] LABS: Band Neutrophils Percent 0 % (3-5)
== END 2023-01-10 16:53 | disposition home or self-care (01) ==
PROVIDERS: Physician Assistant Medical; Emergency Provider Emergency Medicine Emergency Medical Services; PCP Internal Medicine
DX: R07.89 Other chest pain (principal); M54.2 Cervicalgia; M25.512 Pain in left shoulder; Z79.899 Other long term (current) drug therapy
CPT/HCPCS: 36415; 70360; 71046; 80048; 80076; 84484; 85007; 85025; 85027; 93005; 99283

== ENCOUNTER 2023-01-12 10:35 | Outpatient (REF) | payer MEDICAID, SELFPAY ==
--- NOTE | ~2023-01-12 | MM_ITS ---
EXAMINATION: MM DIAGNOSTIC DIGITAL BREAST TOMOSYNTHESIS, BILATERAL US DIAGNOSTIC ULTRASOUND BREAST, BILATERAL CLINICAL INFORMATION: 52-year-old with bilateral breast pain upper outer quadrant for approximately 8 months, sometimes cyclical. Fullness 3:00 left breast on clinical exam. Remote prior outside mammography from [facility], no longer available. The lifetime risk of breast cancer based on the Tyrer-Cuzick Model is 11%. COMPARISON: None (current study represents new baseline exam). TECHNIQUE: Digital breast tomosynthesis is performed in both the craniocaudal and mediolateral oblique views along with computer-aided detection (CAD). Synthesized 2D images are generated from the tomosynthesis. Ultrasound bilateral breasts is performed using grayscale imaging and color Doppler without and with harmonics. Ultrasound is targeted to the areas of symptoms, upper outer quadrants including outer left breast. FINDINGS: The breasts are extremely dense, which lowers the sensitivity of mammography (ACR BI-RADS breast composition Category d). Breast tissue composition borders on heterogeneously dense. There are no significant masses, abnormal calcifications, or other abnormalities. No architectural abnormality. The axilla are unremarkable. There is no skin thickening or retraction. No coarsening of the stromal markings. Bilateral breast ultrasound demonstrates no cystic or solid mass or architectural abnormality. No focal duct ectasia. No skin thickening or edema tracking in soft tissue planes. No hyperemia on color Doppler. Results are discussed with the patient at time of visit. MM/MM tomosynthesis diagnostic BI IMPRESSION: -No mammographic evidence of malignancy or inflammatory changes. -Unremarkable bilateral breast ultrasound. ASSESSMENT: BI-RADS 1: Negative RECOMMENDATION: 1. Patient's chronic breast pain should be managed based on the clinical impression. If there remains a clinical concern for an occult palpable finding, then surgical consult may be considered for further evaluation. Decision to proceed with biopsy should be based on clinical grounds and degree of clinical concern. 2. Otherwise, routine annual screening mammography. This patient's information was entered into a reminder system with a target due date for their next mammogram.
== END 2023-01-12 10:36 | disposition home or self-care (01) ==
LOC: HO.MAMMO 10:35
PROVIDERS: PCP Internal Medicine; Visit Provider Internal Medicine
DX: N64.4 Mastodynia (principal); N64.59 Other signs and symptoms in breast
CPT/HCPCS: 76642; 77062; 77066

== ENCOUNTER 2023-04-21 15:55 | Outpatient (REF) | payer MEDICAID, SELFPAY ==
--- NOTE | ~2023-04-21 | US_ITS ---
EXAMINATION: US PELVIS CLINICAL INFORMATION: Excessive bleeding. COMPARISON: None available. TECHNIQUE: Ultrasound of the pelvis is performed using both transabdominal and transvaginal transducers along with Doppler. Transvaginal imaging is performed due to inadequate visualization transabdominally. FINDINGS: Uterus: The uterus is anteverted and measures 11.2 x 5.1 x 6.9 cm. Endometrial stripe is heterogeneous. Suspect 0.8 cm or less endometrial polyps. The endometrial stripe measures up to approximately 1.5 cm in thickness. The uterus is smooth in contour and has normal myometrial echogenicity. Findings suggest multiple, 1.6 cm or less uterine fibroids. Adnexa: Both ovaries are visualized. There is normal color flow to the adnexa. There is no ovarian torsion. There is no pelvic ascites or fluid collection. Right ovary measures 2.7 x 1.5 x 2.4 cm. Left ovary measures 3.2 x 2.9 x 1.6 cm. US/US pelvic and transvaginal IMPRESSION: Endometrial stripe is heterogeneous. Suspect 0.8 cm or less endometrial polyps. The endometrial stripe measures up to approximately 1.5 cm in thickness. Findings suggest multiple, 1.6 cm or less uterine fibroids. Gynecological consultation is recommended.
== END 2023-04-21 15:56 | disposition home or self-care (01) ==
LOC: HO.US 15:55
PROVIDERS: PCP Internal Medicine; Visit Provider Internal Medicine
DX: N92.4 Excessive bleeding in the premenopausal period (principal)
CPT/HCPCS: 76830; 76856

== ENCOUNTER 2023-05-19 15:10 | Outpatient (REF) | payer MEDICAID, SELFPAY ==
[2023-05-19 18:42] LABS: CT PCR NOT DETECTED (Not Detect.); NG PCR NOT DETECTED (Not Detect.)
[2023-05-20 13:10] LABS: BV Int Neg Control Negative (Negative); BV Int Pos Control Positive (Positive)
[2023-05-25 18:49] LABS: HPV mRNA E6/E7 rflx Not Detected (Not Detected)
== END 2023-05-19 15:11 | disposition home or self-care (01) ==
LOC: HO.LNP 15:10
PROVIDERS: PCP Internal Medicine; Visit Provider Advanced Practice Midwife
DX: N92.0 Excessive and frequent menstruation with regular cycle (principal); D21.9 Benign neoplasm of connective and other soft tissue, unspecified; N84.0 Polyp of corpus uteri
CPT/HCPCS: 0353U; 87480; 87510; 87624; 87660; 88142; 99204

== ENCOUNTER 2023-05-19 15:10 | Outpatient (AMB) | payer MEDICAID, SELFPAY ==
--- NOTE | 2023-05-19 15:10 | MHC.OFFVIS ---
Intake Vital Signs 05/19/23 15:13 Height 5 ft 2 in Weight 128 lb BMI 23.4 BP 110/72 Intake Visit Reasons: heavy bleeding/PCP Referral Intake Note: The patient agreed to use of a medical practice manager during this encounter. Scribed for NICOLE Huston by Jennifer Pedro, medical practice manager, on at 3:30 pm EST. Dowel Inserting Machine Operator Required: Yes Dowel Inserting Machine Operator Language: Sports Management Intern Name: Peyton [id number] Information Interpreted: non-clinical & clinical Middle School Professional: Middle School Professional Present (Aidyn) Allergies lamotrigine [From Lamictal] Allergy (Verified 05/19/23 15:14) Rash Is last menstrual period known: Yes Post menopausal: Yes Patient : No HPI HPI Comments History of Present Illness Details She is a new patient here for [facility] via PCP referral. Heavy menses lasting 2/5 days. Currently sexually active. Reports upcoming open heart surgery at [facility]. Does not have a GUN FERTILIZER at [facility]. Seen at [facility] yesterday due to a seizure an was told she is anemic. No current labs available. Pap smear was years ago and normal per pt. [facility] Medical History (Updated 05/19/23 @ 15:50 by Jennifer Pedro) Anxiety Endometrial polyp Fibroids Heavy menstrual bleeding Seizure disorder Surgical History Mitral valve replaced Family History (Updated 05/19/23 @ 15:17 by SMA Leilani) Paternal Aunt Breast cancer Social History Patient : No Female Reproductive History Menstrual Duration of menses: 3-5 days Total pregnancies: 3 Number of Living Children: 2 Ab spontaneous: 1 Physical Exam Vital Signs: Last Vital Signs BP 110/72 05/19/23 15:13 BMI result Body Mass Index 23.4 Const General: cooperative, healthy appearing, comfortable, no acute distress, well developed, alert and awake Other: General: Yes bladder normal to palpation External Female Exam: normal external appearance and normal appearance of the urethra Speculum Exam - Vagina: normal appearance of the vagina, normal palpation and normal vaginal discharge Speculum Exam - Cervix: normal appearance of the cervix, normal palpation and Other cervical findings present (bled slightly with pap) Bimanual exam- vagina & uterus: normal bimanual exam, normal palpation, bladder normal to palpation and normal palpation Bimanual Exam- Adnexa, other: normal adnexae and no masses Results Reviewed Results Reviewed: EXAMINATION:? US PELVIS CLINICAL INFORMATION:? Excessive bleeding. COMPARISON: None available. TECHNIQUE: Ultrasound of the pelvis is performed using both transabdominal and transvaginal transducers along with Doppler. Transvaginal imaging is performed due to inadequate visualization transabdominally. FINDINGS: Uterus: The uterus is anteverted and measures 11.2 x 5.1 x 6.9 cm. Endometrial stripe is heterogeneous. Suspect 0.8 cm or less endometrial polyps. The endometrial stripe measures up to approximately 1.5 cm in thickness. The uterus is smooth in contour and has normal myometrial echogenicity. ? Findings suggest multiple, 1.6 cm or less uterine fibroids. Adnexa: Both ovaries are visualized. There is normal color flow to the adnexa. There is no ovarian torsion.? There is no pelvic ascites or fluid collection. Right ovary measures 2.7 x 1.5 x 2.4 cm. Left ovary measures 3.2 x 2.9 x 1.6 cm. US/US pelvic and transvaginal IMPRESSION: ? Endometrial stripe is heterogeneous. Suspect 0.8 cm or less endometrial polyps. The endometrial stripe measures up to approximately 1.5 cm in thickness. ? Findings suggest multiple, 1.6 cm or less uterine fibroids. ? Gynecological consultation is recommended. Assessment & Plan Assessment & Plan (1) Heavy menstrual bleeding: Code(s): N92.0 - Excessive and frequent menstruation with regular cycle Plan: Discussed: Pap, BV testing and GC/CT panel done today. Await results and treat accordingly. Frontend Engineer re: Fibroids and endometrial polyp-hysteropscopy for removal of polyp. Defer labs here today, referring to [facility], labs- CBC in that database, (not available today). Referral to [facility] at [facility] for care due to high risk, and prefers a female provider. All of her questions and concerns were addressed to the best of my ability and shared decision making. She is agreeable to plan of care. (2) Fibroids: Code(s): D21.9 - Benign neoplasm of connective and other soft tissue, unspecified (3) Endometrial polyp: Code(s): N84.0 - Polyp of corpus uteri Plan: Advised to schedule consult with female specialist to remove polyp due to being high risk and cardiac history; procedure explained. Orders: Orders Bacterial Vaginosis Panel Today N92.0 - Excessive and frequent menstruation with regular cycle CT NG by PCR Today N92.0 - Excessive and frequent menstruation with regular cycle Pap Smear Today N92.0 - Excessive and frequent menstruation with regular cycle Referrals WASTEWATER OPERATOR Referral N84.0 - Polyp of corpus uteri, N92.0 - Excessive and frequent menstruation with regular cycle Coding Level of Care Code Tele New Pt Level 4 (49366) Diagnoses Heavy menstrual bleeding N92.0 Fibroids D21.9 Endometrial polyp N84.0
[2023-05-19 15:13] VITALS: BP 110/72; BMI 23.4
== END 2023-05-19 15:52 | disposition home or self-care (01) ==
LOC: HO.HWS 15:10
PROVIDERS: PCP Internal Medicine; Visit Provider Advanced Practice Midwife
DX: N92.0 Excessive and frequent menstruation with regular cycle (principal); D21.9 Benign neoplasm of connective and other soft tissue, unspecified; N84.0 Polyp of corpus uteri
CPT/HCPCS: 99204

== ENCOUNTER 2023-06-14 11:03 | Outpatient (AMB) | payer MEDICAID, SELFPAY ==
[2023-06-14 11:14] VITALS: BMI 24.2
--- NOTE | 2023-06-14 11:14 | MHC.OFFVIS ---
Intake Vital Signs 06/14/23 11:14 Height 5 ft 2 in Weight 132 lb 4.438 oz BMI 24.2 Intake Visit Reasons: colonoscopy Allergies lamotrigine [From Lamictal] Allergy (Verified 05/19/23 15:14) Rash Medication List - Last Reconciled 06/14/23 by Eliana Chahal PA-C aspirin 81 mg PO DAILY atorvastatin 40 mg PO BEDTIME cyclobenzaprine 5 mg PO TID PRN ibuprofen 600 mg PO Q6H PRN levetiracetam 500 mg PO BID quetiapine 50 mg PO BEDTIME sertraline 100 mg PO DAILY HPI HPI Comments History of Present Illness Details A 53-year-old female MVP. Seizure disorder, menorrhagia, referred for screening colonoscopy- she says she is having a hysterectomy- a well as her 2nd open heart surgery soon Bowels- BM daily a bit hard-at times-she does not eat much fiber Appetite is good- No nausea, vomiting, hematemesis, hematochezia, abdominal pain, fever or chills. No cough, chest pain or shortness of breath PFSH Medical History Endometrial polyp Heavy menstrual bleeding Fibroids Seizure disorder Anxiety Surgical History Mitral valve replaced Family History Paternal Aunt Breast cancer Social History (Updated 06/14/23 @ 11:49 by Eliana Chahal PA-C) Housing: Apartment Alcohol intake: never Patient Tobacco Use Status: Never used Tobacco Review of Systems Const All systems reviewed & are unremarkable except as noted in HPI and below Denies chills and Denies fever(s) Card Denies chest pain and Denies dyspnea Resp Denies dyspnea GI Denies abdominal pain, Denies bloating, Denies hematochezia, Denies change in bowel habits, Denies GI cramping, Denies heartburn, Denies diarrhea, Denies nausea and Denies vomiting Physical Exam Vital Signs: BMI result Body Mass Index 24.2 Cardio Rate: regular rate Rhythm: regular rhythm Heart sounds: Murmur heart sound present GI Palpation (GI): Soft to palpation and nontender Auscultation: normal bowel sounds Skin General skin exam: no rashes or lesions noted Extrem General: Yes full ROM Psych Appearance: grossly normal and well kempt Mental Status: mental status grossly normal Speech and movement: Normal speech and movement present and Clear speech present Affect: normal affect Attitude: cooperative Thought process: Normal thought process present Thought content: Normal thought content present Insight: Good insight present (Psych) Judgement: Good judgement present (Psych) Assessment & Plan Assessment & Plan (1) History of mitral valve disorder: Comment: Awaiting surgery-will re-evaluate for colonoscopy when time appropriate Code(s): Z86.79 - Personal history of other diseases of the circulatory system Plan: Follow-up cardiology (2) Encounter for screening colonoscopy: Comment: Discussed alternatives will get Cologuard interim Code(s): Z12.11 - Encounter for screening for malignant neoplasm of colon Plan: Colonguard Plan Hold off on colonoscopy, await cardiac surgeon follow-up appropriate timing Cologuard if positive colonoscopy Bowel regimen maintain high-fiber diet avoid straining Encouraged to call with questions or concerns Orders: Referrals Cologuard Test Z12.11 - Encounter for screening for malignant neoplasm of colon Medications: New docusate sodium (Colace) 200 mg (2 x 100 mg) PO BEDTIME 60 caps 5RF hydrocortisone 2.5% (Proctosol HC) 1 appl PA BEDTIME PRN 30 grams 3RF hemorrhoids methylcellulose (laxative) (Citrucel) 500 mg PO TID 30 days 90 tabs 5RF Patient Instructions: Discussed colonoscopy and alternatives to include Cologuard-approximately 13% follows positive, if positive recommend colonoscopy-she will call for results 2 weeks after submitting the sample Maintain high-fiber diet-avoid straining Proctosol pr Qhs Re-evaluate after cardiac surgery Plan of care dependent on above Encouraged her to call with any questions or concerns. There are no major barriers to understanding identified Coding Level of Care Code New Pt Level 3 (27375) Diagnoses History of mitral valve disorder Z86.79 Encounter for screening colonoscopy Z12.11 Time Spent (min) 30
== END 2023-06-14 11:40 | disposition home or self-care (01) ==
PROVIDERS: PCP Internal Medicine; Visit Provider Physician Assistant
DX: Z86.79 Personal history of other diseases of the circulatory system (principal); Z12.11 Encounter for screening for malignant neoplasm of colon
CPT/HCPCS: 99203

== ENCOUNTER → 2023-06-14 11:04 | Outpatient (BNVA) | payer MEDICAID, SELFPAY | PROVIDERS: PCP Internal Medicine; Visit Provider Physician Assistant | DX: Z12.11 Encounter for screening for malignant neoplasm of colon (principal); Z86.79 Personal history of other diseases of the circulatory system | CPT/HCPCS: 99212 ==

== ENCOUNTER 2023-10-28 07:55 | Outpatient (REF) | payer MEDICAID, SELFPAY ==
--- NOTE | 2023-10-28 08:09 | EMG_ITS ---
Right median and ulnar motor and sensory studies were performed. Right median and lateral antecubital brachial radial and dorsal ulnar sensory studies were performed and paraspinal muscles were tested with a needle. IMPRESSION: This is an unremarkable study with no evidence of entrapment neuropathy, radiculopathy or plexopathy. MD NIDIA Moody/IRLANDA / [id number]
== END 2023-10-28 07:56 | disposition home or self-care (01) ==
LOC: HO.NEURO 07:55
PROVIDERS: PCP Internal Medicine; Visit Provider Internal Medicine
DX: G56.20 Lesion of ulnar nerve, unspecified upper limb (principal)
CPT/HCPCS: 95886; 95910

== ENCOUNTER 2023-11-17 14:12 | Outpatient (REF) | payer MEDICAID, SELFPAY ==
[2023-11-17 15:16] LABS: Imm Gran Abs Auto 0.01 X10*3/uL (0.00-0.03); Imm Gran Pct Auto 0.2 % (0.0-0.4); Mean Corpuscular Hemoglobin 28.1 pg (27.0-33.0); Neutrophils Absolute Auto 1.7 x10*3/uL (2.0-8.3); SCAN SMEAR FLAG 1
[2023-11-17 15:19] LABS: Basophils Percent Auto 0.5 % (0-2); Eosinophils Absolute Auto 0.1 X10*3/uL (0.0-0.4); Eosinophils Percent Auto 1.4 % (0-4); Hematocrit 36.9 % (37.0-47.0); Hemoglobin 13.1 g/dl (12.0-16.0); Lymphocytes Absolute Auto 2.1 X10*3/uL (1.2-4.9); Lymphocytes Percent Auto 47.8 % (20-40); Mean Corpuscular HGB Conc 35.5 g/dl (31.0-35.0); Mean Corpuscular Volume 79.2 fL (80.0-98.0); Mean Platelet Volume 11.8 fL (9.4-12.3); Monocytes Absolute Auto 0.5 X10*3/uL (0.1-1.2); Monocytes Percent Auto 11.4 % (2-11); Neutrophils Percent Auto 38.7 % (45-73); Platelet Count 176 X10*3/uL (160-400); Red Blood Count 4.66 X10*6/uL (4.20-5.50); White Blood Count 4.4 X10*3/uL (4.8-10.8)
[2023-11-17 15:30] LABS: PLT ABN DIST 1
[2023-11-17 15:31] LABS: MANUAL DIFF FLAG NO
[2023-11-17 17:43] LABS: Alanine Aminotransferase 17 U/L (0-31); Albumin Level 4.1 g/dL (3.5-5.0); Alkaline Phosphatase 47 U/L (39-117); Anion Gap 9 (12-20); Aspartate Amino Transferase 22 U/L (5-31); Bilirubin Total 0.5 mg/dL (0.0-1.0); Blood Urea Nitrogen 6 mg/dL (9-16); Calcium 9.3 mg/dL (8.4-10.2); Carbon Dioxide 28 mmol/L (22-29); Chloride 105 mmol/L (96-108); Cholesterol 127 mg/dL (<200); Estimated Glomerular Filt Rate > 60; Glucose Random 87 mg/dL (60-115); HDL Cholesterol 53 mg/dL (>40); LDL Cholesterol Calculated 66 mg/dL (<100); Potassium 3.6 mmol/L (3.3-5.1); Sodium 138 mmol/L (135-145); Total Protein 7.5 g/dL (6.5-8.0); Triglycerides 43 mg/dL (<150)
== END 2023-11-17 14:13 | disposition home or self-care (01) ==
LOC: HO.LAB 14:12
PROVIDERS: PCP Internal Medicine; Visit Provider Internal Medicine
DX: E78.00 Pure hypercholesterolemia, unspecified (principal); F32.9 Major depressive disorder, single episode, unspecified; G56.21 Lesion of ulnar nerve, right upper limb; Z95.2 Presence of prosthetic heart valve; Z79.01 Long term (current) use of anticoagulants
CPT/HCPCS: 36415; 80053; 80061; 85025

== ENCOUNTER 2023-12-31 16:50 | Emergency (ER) | payer OTHER, SELFPAY ==
[2023-12-31 17:27] VITALS: BP 102/76; PULSE 90; RESP 18; TEMP 37.1; O2SAT 96; BMI 23.7
--- NOTE | 2023-12-31 17:30 | ED_ITS ---
HPI - General Adult General Chief complaint: General Medical Stated complaint: Shoulder and neck pain Time Seen by Provider: 12/31/23 20:07 Source: patient Mode of arrival: ambulatory History of Present Illness HPI narrative: 53-year-old female with complaint of onset of bilateral shoulder pain with mild headache and pain extends from bilateral paraspinal base of neck this started while she was folding clothes home. Although in the triage note patient reported neck pain and symptoms have been increasing over the past few days she informed me that this pain had started at 14:30 this afternoon and that she had had 2 prior episodes that resolved. Patient did take Tylenol but she says that this did not help. She denies any falls or traumatic injuries in her history is significant for open heart surgery on August 2023 when she had 2 valves changed and currently takes warfarin. Related Data Home Medications ?Medication ?Instructions ?Recorded ?Confirmed aspirin 81 mg chewable tablet 81 mg PO DAILY 05/19/23 06/14/23 atorvastatin 40 mg tablet 40 mg PO BEDTIME 05/19/23 06/14/23 levetiracetam 500 mg tablet 500 mg PO BID 05/19/23 06/14/23 quetiapine 50 mg tablet 50 mg PO BEDTIME 05/19/23 06/14/23 sertraline 100 mg tablet 100 mg PO DAILY 05/19/23 06/14/23 Previous Rx's ?Medication ?Instructions ?Recorded cyclobenzaprine 5 mg tablet 5 mg PO TID PRN muscle spasm #14 01/10/23 tabs ibuprofen 600 mg tablet 600 mg PO Q6H PRN pain #20 tabs 01/10/23 docusate sodium 100 mg capsule 200 mg (2 x 100 mg) PO BEDTIME #60 06/14/23 (Colace) caps hydrocortisone 2.5 % topical cream 1 appl NV BEDTIME PRN hemorrhoids 06/14/23 with perineal applicator #30 grams (Proctosol HC) methylcellulose (laxative) 500 mg 500 mg PO TID 30 days #90 tabs 06/14/23 tablet (Citrucel) cyclobenzaprine 10 mg tablet 10 mg PO BEDTIME PRN muscle spasm 12/31/23 #5 tabs Allergies Allergy/AdvReac Type Severity Reaction Status Date / Time lamotrigine [From Lamictal] Allergy Rash Verified 12/31/23 17:29 Review of Systems 2 Review of Systems: Pertinent positives and negatives as stated in HPI PMFSH Past Medical History Source: nursing notes reviewed Medical History Endometrial polyp Heavy menstrual bleeding Fibroids Seizure disorder Anxiety Surgical History Mitral valve replaced Family History Family History Paternal Aunt Breast cancer Social History Social History Housing: Apartment Alcohol intake: never Patient Tobacco Use Status: Never used Tobacco Advance Directives: No Advance Directives Information Provided: Yes Physical Exam ED Vital Signs: Vital Signs - 24 hr 12/31/23 17:27 12/31/23 20:17 Temperature 98.8 F 98.1 F Pulse Rate 90 87 Respiratory Rate 18 18 Blood Pressure 102/76 104/67 Pulse Oximetry 96 97 Oxygen Delivery Method Room Air Room Air BMI result Body Mass Index 23.7 VITAL SIGNS: Reviewed. GENERAL: Well developed, well nourished, in no acute distress. HEAD: Normocephalic/atraumatic EYES: PERRLA, EOMI EARS: Ext canals without abnormality NOSE: Nares patent bilateral OROPHARYNX: no oral lesions noted, posterior pharynx clear NECK: Supple, no adenopathy LUNGS: Normal breath sounds. No adventitious sounds or accessory muscle use. SpO2<97> CARDIOVASCULAR: Regular rate and rhythm without noted murmurs, no carotid bruits ABDOMEN: Soft, non-tender, non-distended with bowel sounds. MUSCULOSKELETAL: No tenderness, deformities, or effusions noted on gross inspection. EXTREMITIES: No cyanosis, clubbing or edema. SKIN: Inspection of the skin reveals no rashes NEUROLOGIC: Alert and oriented x 4. Strength and sensation to light touch were grossly intact x 4, no facial asymmetry, no pronator drift, cranial nerves 2-12 are grossly intact. Course Course Course Narrative: This is an RME: Additional HPI, ROS, PE not included below will be deferred to primary provider. Patient is a 53-year-old female Reports bilateral shoulder and neck pain left worse than right. Onset was a few days ago intermittent in nature, responsive to Tylenol. Today pain is much worse, not alleviated by Tylenol. Denies any precipitating injury. Reports also having R anterior CP associated with this. Reports open heart surgery august 2023, for valve repair at [facility] Plan: Labs, EKG Medical Decision Making Medical Decision Making [facility] Narrative: 53-year-old female with history and clinical presentation, DDX: No concern for neurologic/focal deficits, no concern for acute vascular etiology and suspect that this is likely muscle spasms/musculoskeletal given the bilateral nature and on review of prior visits patient has been seen here for similar neck pain previously. I reviewed all investigations and hematologic indices are grossly and chronically stable without leukocytosis/anemia/thrombocytopenia. INR-2.2 and chemistry indices do not demonstrate any WALDO or electrolyte/liver enzyme derangements. High sensitivity troponin is undetectable. Urinalysis is negative for UTI or hematuria. Viral testing negative for influenza/RSV/COVID- 19. Patient offered lidocaine patch and will send home with a prescription of cyclobenzaprine as well as instructions for Tylenol. She also was instructed follow-up with primary care doctor on Wednesday morning. Differential Diagnosis Differential Diagnoses: The differential diagnosis associated with the presentation includes Please see the discussion above Admission/Observation Consideration of admission/observation: Escalation of care including admission/observation considered Please see the discussion above Lab Data [facility] Lab Attestation statement: I reviewed the patient's lab results. Please see the discussion above 12/31/23 17:52 12/31/23 17:52 Labs: Lab Results 12/31/23 12/31/23 Range/Units 17:52 17:56 WBC 4.0 L (4.8-10.8) X10*3/uL RBC 4.43 (4.20-5.50) X10*6/uL Hgb 12.3 (12.0-16.0) g/dl Hct 33.7 L (37.0-47.0) % MCV 76.1 L (80.0-98.0) fL MCH 27.8 (27.0-33.0) pg MCHC 36.5 H (31.0-35.0) g/dl RDW 14.6 (11.0-16.0) % Plt Count 197 (160-400) X10*3/uL MPV 11.2 (9.4-12.3) fL Immature Gran % (Auto) 0.3 (0.0-0.4) % Neut % (Auto) 38.5 L (45-73) % Lymph % (Auto) 48.1 H (20-40) % [place] % (Auto) 11.3 H (2-11) % Eos % (Auto) 1.3 (0-4) % Baso % (Auto) 0.5 (0-2) % Lymph # (Auto) 1.9 (1.2-4.9) X10*3/uL [place] # (Auto) 0.5 (0.1-1.2) X10*3/uL Eos # (Auto) 0.1 (0.0-0.4) X10*3/uL Baso # (Auto) 0.0 (0.0-0.2) X10*3/uL Abs Immat Gran (auto) 0.01 (0.00-0.03) X10*3/uL Absolute Neuts (auto) 1.5 L (2.0-8.3) x10*3/uL Absolute Nucleated RBC 0.000 (0.0-0.012) X10*3/uL Nucleated RBC % (auto) 0.0 (0.0-0.2) /100WBC PT 26.8 H (11.1-13.3) SEC INR 2.2 H (0.9-1.1) Sodium 138 (135-145) mmol/L Potassium 3.8 (3.3-5.1) mmol/L Chloride 107 (96-108) mmol/L Carbon Dioxide 26 (22-29) mmol/L Anion Gap 9 L (12-20) BUN 7 L (9-16) mg/dL Creatinine 0.58 (0.5-1.4) mg/dL Estim Creat Clear Calc 89.7 Estimated GFR > 60 Random Glucose 103 (60-115) mg/dL Calcium 9.1 (8.4-10.2) mg/dL Magnesium 2.0 (1.6-2.6) mg/dL Total Bilirubin 0.4 (0.0-1.0) mg/dL AST 20 (5-31) U/L ALT 13 (0-31) U/L Alkaline Phosphatase 44 (39-117) U/L Troponin I High Sens < 2.7 (<3.5-17.0) ng/L Total Protein 7.1 (6.5-8.0) g/dL Albumin 4.0 (3.5-5.0) g/dL Lipase 38 (8-78) U/L Urine Color Yellow Urine Appearance Clear Urine pH 8.0 (5.0-9.0) Ur Specific [place] 1.010 (1.005-1.025) Urine Protein Negative (Neg-Trace) mg/dL Urine Glucose (UA) Negative (Negative) mg/dL Urine Ketones Negative (Negative) mg/dL Urine Blood Negative (Negative) Urine Nitrite Negative (Negative) Ur Leukocyte Esterase Negative (Negative) Influenza Type A (PCR) NEGATIVE (Negative) Influenza Type B (PCR) NEGATIVE (Negative) RSV RNA Qual (PCR) NEGATIVE (Negative) SARS-CoV-2 RNA (RT-PCR) NEGATIVE (Negative) External Record Review External record reviewed: Outpatient record and Prior outpatient labs Critical Care Time Critical Care Time Critical Care Time: Yes Total Critical Care Time: 30 Attestation: I personally attest to this time spent taking care of the patient. Discharge Plan Discharge Clinical Impression: Musculoskeletal neck pain, Neck muscle spasm Instructions: Musculoskeletal Pain (ED), Muscle Spasm (ED) Additional Instructions: 1. Resume all home medications as prescribed. 2. Tylenol 1000 mg, orally, every 6 hours as needed for pain control. 3. Lidocaine patch, apply to area of maximal tenderness as directed on the outside packaging. 4. Follow-up with your primary care doctor on Wednesday morning. Return to the ER for any worsening symptoms. Prescriptions: New cyclobenzaprine 10 mg tablet 10 mg PO BEDTIME PRN (Reason: muscle spasm) Qty: 5 0RF No Action ibuprofen 600 mg tablet 600 mg PO Q6H PRN (Reason: pain) Qty: 20 0RF cyclobenzaprine 5 mg tablet 5 mg PO TID PRN (Reason: muscle spasm) Qty: 14 0RF Citrucel 500 mg tablet 500 mg PO TID 30 Days Qty: 90 5RF docusate sodium [Colace] 100 mg capsule 200 mg PO BEDTIME Qty: 60 5RF hydrocortisone [Proctosol HC] 2.5 % cream with perineal applicator 1 appl NV BEDTIME PRN (Reason: hemorrhoids) Qty: 30 3RF aspirin 81 mg tablet,chewable 81 mg PO DAILY sertraline 100 mg tablet 100 mg PO DAILY atorvastatin 40 mg tablet 40 mg PO BEDTIME quetiapine 50 mg tablet 50 mg PO BEDTIME levetiracetam 500 mg tablet 500 mg PO BID Referrals: Andreina Chance MD [Primary Care Provider] - Print Language: Swedish
--- NOTE | 2023-12-31 17:35 | ECG_ITS ---
Test Reason : CHEST PAIN Blood Pressure : / mmHG Vent. Rate : 084 BPM Atrial Rate : 084 BPM P-R Int : 158 ms QRS Dur : 078 ms QT Int : 398 ms P-R-T Axes : 039 076 042 degrees QTc Int : 470 ms Normal sinus rhythm Possible Left atrial enlargement Nonspecific T wave changes Abnormal ECG When compared to the previous EKG of No significant changes seen Referred By: Anna Andrade Electronically Signed By:Jacky Moran
[2023-12-31 18:00] LABS: MANUAL DIFF FLAG NO
[2023-12-31 18:02] LABS: Appearance Urine Clear; Color Urine Yellow; Glucose Urine UA Negative (Negative); Leukocyte Esterase Urine Negative (Negative); Nitrite Urine Negative (Negative); Urine Blood Negative (Negative); Urine Ketones Negative (Negative); Urine Protein Negative (Neg-Trace)
[2023-12-31 18:08] LABS: Basophils Percent Auto 0.5 % (0-2); Eosinophils Absolute Auto 0.1 X10*3/uL (0.0-0.4); Eosinophils Percent Auto 1.3 % (0-4); Hematocrit 33.7 % (37.0-47.0); Hemoglobin 12.3 g/dl (12.0-16.0); Imm Gran Abs Auto 0.01 X10*3/uL (0.00-0.03); Imm Gran Pct Auto 0.3 % (0.0-0.4); Lymphocytes Absolute Auto 1.9 X10*3/uL (1.2-4.9); Lymphocytes Percent Auto 48.1 % (20-40); Mean Corpuscular HGB Conc 36.5 g/dl (31.0-35.0); Mean Corpuscular Hemoglobin 27.8 pg (27.0-33.0); Mean Corpuscular Volume 76.1 fL (80.0-98.0); Mean Platelet Volume 11.2 fL (9.4-12.3); Monocytes Absolute Auto 0.5 X10*3/uL (0.1-1.2); Monocytes Percent Auto 11.3 % (2-11); Neutrophils Absolute Auto 1.5 x10*3/uL (2.0-8.3); Neutrophils Percent Auto 38.5 % (45-73); Platelet Count 197 X10*3/uL (160-400); Red Blood Count 4.43 X10*6/uL (4.20-5.50); Red Cell Distribution Width 14.6 % (11.0-16.0)
[2023-12-31 18:09] LABS: INTERNATIONAL NORM RATIO 2.2 (0.9-1.1); Prothrombin Time 26.8 SEC (11.1-13.3)
[2023-12-31 18:14] LABS: Alanine Aminotransferase 13 U/L (0-31); Alkaline Phosphatase 44 U/L (39-117); Anion Gap 9 (12-20); Aspartate Amino Transferase 20 U/L (5-31); Bilirubin Total 0.4 mg/dL (0.0-1.0); Blood Urea Nitrogen 7 mg/dL (9-16); Calcium 9.1 mg/dL (8.4-10.2); Carbon Dioxide 26 mmol/L (22-29); Chloride 107 mmol/L (96-108); Creatinine Clr Calc Pharmacy 89.7; Estimated Glomerular Filt Rate > 60; Glucose Random 103 mg/dL (60-115); Lipase 38 U/L (8-78); Potassium 3.8 mmol/L (3.3-5.1); Sodium 138 mmol/L (135-145); Total Protein 7.1 g/dL (6.5-8.0)
[2023-12-31 18:21] LABS: Troponin-I High Sensitivity < 2.7 ng/L (<3.5-17.0)
[2023-12-31 18:37] LABS: Influenza A PCR NEGATIVE (Negative); Influenza B PCR NEGATIVE (Negative); Resp Syncy Virus RNA Qual PCR NEGATIVE (Negative); SARS COV2 PCR INHOUSE NEGATIVE (Negative)
[2023-12-31 20:17] VITALS: BP 104/67; PULSE 87; RESP 18; TEMP 36.7; O2SAT 97
[2023-12-31 23:00] VITALS: BP 98/60; PULSE 77; RESP 16; TEMP 36.6; O2SAT 95
[2023-12-31] MEDS: Lidocaine 4 % Patch ADH..PATCH 1 PATCH TRANSDERMA (23:13)
== END 2023-12-31 23:20 | disposition home or self-care (01) ==
PROVIDERS: Nurse Practitioner Family; Emergency Provider Student in an Organized Health Care Education/Training Program; PCP Internal Medicine
DX: M54.2 Cervicalgia (principal); M62.838 Other muscle spasm; Z95.2 Presence of prosthetic heart valve; Z79.01 Long term (current) use of anticoagulants
CPT/HCPCS: 0241U; 36415; 80053; 81003; 83690; 83735; 84484; 85025; 85610; 93005; 99283; 99284

== ENCOUNTER → 2023-12-31 17:35 | Outpatient (BNV) | payer OTHER, SELFPAY | PROVIDERS: Emergency Provider Student in an Organized Health Care Education/Training Program; PCP Internal Medicine; Visit Provider Internal Medicine Cardiovascular Disease | DX: R07.9 Chest pain, unspecified (principal) | CPT/HCPCS: 93010 ==

== ENCOUNTER 2024-01-26 10:17 | Inpatient (IN) | payer OTHER, SELFPAY ==
--- NOTE | 2024-01-26 10:18 | ED_ITS ---
HPI - General Adult General Chief complaint: Psychiatric Symptoms Stated complaint: SECTION 12,SI PER EMS Time Seen by Provider: 01/26/24 10:18 Source: patient and EMS Mode of arrival: EMS Limitations: no limitations History of Present Illness HPI narrative: Patient is a 53 year old assigned female at with a history of uterine fibroids presenting to the emergency department today with suicidal ideation. Patient states that she is feeling more depressed and suicidal. Patient states that she plans to overdose on medications. Patient denies any dizziness, lightheadedness, abdominal pain, nausea, vomiting, fever, chills, blurry vision, double vision, loss of vision, chest pain, difficulty breathing, shortness of breath, back pain, night sweats, pain with urination, increased urinary frequency, increased urinary urgency, blood in her urine or stool, syncope or a near syncopal episode, recent trauma or falls, bowel incontinence, bladder incontinence, bowel retention, bladder retention, or any other complaints at this time. Onset (ago): day(s) Severity: mild Severity scale (1-10): 3 Relieving factors: none Exacerbating factors: none Associated symptoms: denies other symptoms Treatments prior to arrival: none Related Data Home Medications ?Medication ?Instructions ?Recorded ?Confirmed acetaminophen 650 mg 650 mg PO TID 01/26/24 01/26/24 tablet,extended release aripiprazole 2 mg tablet 2 mg PO QAM 01/26/24 01/26/24 aspirin 81 mg chewable tablet 1 tab PO DAILY 01/26/24 01/26/24 atorvastatin 40 mg tablet 40 mg PO BEDTIME 01/26/24 01/26/24 cyclobenzaprine 10 mg tablet 10 mg PO BEDTIME PRN muscle spasm 01/26/24 01/26/24 levetiracetam 500 mg tablet 500 mg PO BID 01/26/24 01/26/24 metoprolol tartrate 50 mg tablet 50 mg PO BID 01/26/24 01/26/24 norethindrone (contraceptive) 0.35 0.35 mg PO DAILY 01/26/24 01/26/24 mg tablet quetiapine 100 mg tablet 100 mg PO DAILY 01/26/24 01/26/24 sertraline 100 mg tablet 150 mg PO QAM 01/26/24 01/26/24 warfarin 2 mg tablet mg PO 01/26/24 Allergies Allergy/AdvReac Type Severity Reaction Status Date / Time lamotrigine [From Lamictal] Allergy Rash Verified 01/26/24 10:35 Review of Systems 2 Constitutional: Constitutional: Reports no additional constitutional complaints, Denies chills, Denies fever(s) and Denies night sweats Eyes: Eyes: Reports no additional eye complaints, Denies blurry vision, Denies change in vision, Denies diplopia, Denies eye discharge, Denies loss of vision and Denies eye pain ENT: Denies dizziness Cardiovascular: Cardiovascular: Reports no additional cardiovascular complaints, Denies chest pain, Denies lightheadedness, Denies Loss of Consciousness and Denies dyspnea Respiratory: Respiratory: Reports no additional respiratory complaints and Denies dyspnea Gastrointestinal: Gastrointestinal: Reports no additional gastrointestinal complaints, Denies abdominal pain, Denies melena, Denies hematochezia, Denies change in bowel habits and Denies change in stool character Genitourinary: Genitourinary: Denies hematuria, Denies urinary frequency, Denies dysuria, Denies urinary incontinence, Denies urinary hesitancy and Denies urinary urgency Musculoskeletal: Musculoskeletal: Reports no additional musculoskeletal complaints, Denies numbness and Denies tingling Neurologic: Denies dizziness, Denies loss of vision, Denies numbness and Denies tingling Psychiatric: Psychiatric: Reports no additional psychiatric complaints, Reports depression, Denies homicidal ideation and Reports suicidal ideation Endocrine: Endocrine: Reports no additional endocrine complaints Hematologic/Lymphatic: Hematologic/Lymphatic: Reports no additional hematologic/lymphatic complaints Allergic/Immunologic: Allergic/Immunologic: Reports no additional allergic/immunologic complaints [facility] Past Medical History Attestation statement: The following information was validated with the patient. Source: old records reviewed and nursing notes reviewed Medical History Endometrial polyp Heavy menstrual bleeding Fibroids Seizure disorder Anxiety Surgical History Mitral valve replaced Family History Family History Paternal Aunt Breast cancer Social History Social History Housing: Apartment Alcohol intake: never Patient Tobacco Use Status: Never used Tobacco Smoked in Last 30 Days: No Use of substances other than those prescribed or required for medical reasons: No Advance Directives: No Do you have a plan to hurt others: No Plan Patient : No Physical Exam ED Vital Signs: Vital Signs - 24 hr 01/26/24 10:29 01/26/24 10:46 01/26/24 15:28 Temperature 97.9 F 97.9 F 99.5 F Pulse Rate 85 85 81 Respiratory Rate 18 18 16 Blood Pressure 114/67 114/67 104/72 Pulse Oximetry 100 100 100 Oxygen Delivery Method Room Air Room Air Room Air BMI result Body Mass Index 23.6 Const General: cooperative, no acute distress, alert and awake Nutritional Appearance: well nourished Orientation/consciousness: patient oriented x3 Limitations: no limitations HENMT Head: Yes normal to inspection and Yes atraumatic Ears: hearing grossly normal bilaterally and external ears normal General nose exam: Normal external nose present, no nasal discharge noted and no epistaxis Face and sinus: Yes normal facial exam, No abrasion and No laceration Mouth: Normal oral and palatal mucosa present, no drooling and no muffled voice Eyes General: appearance normal, both eyes and all related structures Periorbital: periorbital findings normal Eyelids: Yes eyelids normal Conjunctivae: conjunctivae normal Pupils: Equal, round and reactive pupils present EOM: EOMs intact bilaterally Neck Neck: Yes normal visual inspection, Yes full ROM and Yes no lymphadenopathy Chest Chest palpation & inspection: normal inspection of the chest Resp Effort & Inspection: normal respiratory effort and able to speak in complete sentences GI Inspection: Yes normal to inspection Neuro General: patient oriented x3 and moves all extremities Cranial nerves: Yes Equal, round and reactive pupils present Cognition (Neuro): normal cognition Motor exam (neuro): 5/5 motor strength present throughout Sensory Exam: Normal double simultaneous stimulation for sensation Coordination: [id number] test normal Extrem General: Yes normal to inspection, Yes full ROM and Yes capillary refill normal Psych Appearance: grossly normal Mental Status: mental status grossly normal Affect: Sad affect present Attitude: Guarded attititude/behavior present Thought content: Suicidality present Course Reevaluation(s) Reevaluation #1: Patient is a 53-year-old woman who is here with depression. She also has 2 mechanical heart valves and is on warfarin. Her INR today is 2.6. She normally has her warfarin dosing managed by the [facility]. Goal INR is 2.5-3.5. According to the person at the [facility] Clinic with whom I spoke she normally takes 4 mg of warfarin daily except for Wednesday and Wednesday when she takes 6 mg. The staff at the [facility] Clinic also said that when such patients or hospitalized they should have the INRs followed daily. I have therefore ordered daily INRs and we have put in the current warfarin scheduling that she is normally on. Medications Administered Generic Name Dose Route Start Last Admin Trade Name Jimmy PRN Reason Stop Dose Admin Acetaminophen 650 mg 01/26/24 15:00 01/26/24 15:58 Acetaminophen 325 Mg Tablet PO Not Given TID MAYELA Medical Decision Making Medical Decision Making [facility] Narrative: Patient is a 53 year old assigned female at with a history of fibroids presenting to the emergency department today with suicidal ideation and increased depression. Patient's physical exam was as noted in the physical exam portion of this note. Patient's blood work was unremarkable. Patient's urine showed no acute process. I explained my physical exam findings as well as all test results to the patient. I answered all questions asked by the patient. Patient is presently awaiting CARE team evaluation. Patient's disposition will be determined after CARE team evaluation. Physician observation began 1240. Differential Diagnosis Differential Diagnoses: The differential diagnosis associated with the presentation includes Suicidal ideation Depression Admission/Observation Consideration of admission/observation: Escalation of care including admission/observation considered Patient's disposition will be determined after CARE team evaluation. Lab Data [facility] Lab Attestation statement: I reviewed the patient's lab results. My interpretation of these results are in the [facility] Rationale portion of this note. 01/26/24 10:35 01/26/24 10:35 Labs: Lab Results 01/26/24 01/26/24 01/26/24 Range/Units 10:29 10:35 12:45 WBC 4.2 L (4.8-10.8) X10*3/uL RBC 3.91 L (4.20-5.50) X10*6/uL Hgb 10.6 L (12.0-16.0) g/dl Hct 29.4 L (37.0-47.0) % MCV 75.2 L (80.0-98.0) fL MCH 27.1 (27.0-33.0) pg MCHC 36.1 H (31.0-35.0) g/dl RDW 14.3 (11.0-16.0) % Plt Count 203 (160-400) X10*3/uL MPV 11.0 (9.4-12.3) fL Immature Gran % (Auto) 0.2 (0.0-0.4) % Neut % (Auto) 54.2 (45-73) % Lymph % (Auto) 31.7 (20-40) % [place] % (Auto) 12.0 H (2-11) % Eos % (Auto) 1.4 (0-4) % Baso % (Auto) 0.5 (0-2) % Lymph # (Auto) 1.3 (1.2-4.9) X10*3/uL [place] # (Auto) 0.5 (0.1-1.2) X10*3/uL Eos # (Auto) 0.1 (0.0-0.4) X10*3/uL Baso # (Auto) 0.0 (0.0-0.2) X10*3/uL Abs Immat Gran (auto) 0.01 (0.00-0.03) X10*3/uL Absolute Neuts (auto) 2.3 (2.0-8.3) x10*3/uL Absolute Nucleated RBC 0.000 (0.0-0.012) X10*3/uL Nucleated RBC % (auto) 0.0 (0.0-0.2) /100WBC PT 31.8 H (11.1-13.3) SEC INR 2.6 H (0.9-1.1) Sodium 138 (135-145) mmol/L Potassium 3.5 (3.3-5.1) mmol/L Chloride 105 (96-108) mmol/L Carbon Dioxide 25 (22-29) mmol/L Anion Gap 12 (12-20) BUN 7 L (9-16) mg/dL Creatinine 0.60 (0.5-1.4) mg/dL Estim Creat Clear Calc 86.7 Estimated GFR > 60 Random Glucose 86 (60-115) mg/dL Calcium 9.3 (8.4-10.2) mg/dL Total Bilirubin 0.5 (0.0-1.0) mg/dL AST 19 (5-31) U/L ALT 13 (0-31) U/L Alkaline Phosphatase 42 (39-117) U/L Total Protein 7.3 (6.5-8.0) g/dL Albumin 4.1 (3.5-5.0) g/dL Urine Color Yellow Urine Appearance Clear Urine pH 6.5 (5.0-9.0) Ur Specific [place] 1.010 (1.005-1.025) Urine Protein Negative (Neg-Trace) mg/dL Urine Glucose (UA) Negative (Negative) mg/dL Urine Ketones Negative (Negative) mg/dL Urine Blood Negative (Negative) Urine Nitrite Negative (Negative) Ur Leukocyte Esterase Negative (Negative) Urine Opiates Screen Not Detected (Not Detect) Ur Buprenorphine Scrn Not Detected (Not Detect) ng/mL Ur Oxycodone Screen Not Detected (Not Detect) ng/mL Urine Methadone Screen Not Detected (Not Detect) ng/mL Urine Fentanyl Screen Not Detected (Not Detect) Ur Barbiturates Screen Not Detected (Not Detect) Ur Phencyclidine Scrn Not Detected (Not Detect) Ur Amphetamines Screen Not Detected (Not Detect) U Benzodiazepines Scrn Not Detected (Not Detect) Urine Cocaine Screen Not Detected (Not Detect) U Marijuana (THC) Screen Not Detected (Not Detect) Ethyl Alcohol < 10 mg/dL COVID-19 (JIN) Negative (Negative) COVID-19 Clin Com See Note Independent Historian Clinical information obtained from an independent historian. History obtained from or confirmed by: EMS (EMS provided additional history and confirmed the history provided by the patient.) Discharge Plan Discharge Clinical Impression: Suicidal ideation, Depression Patient Disposition: Still a Patient Prescriptions: No Action cyclobenzaprine 10 mg tablet 10 mg PO BEDTIME PRN (Reason: muscle spasm) atorvastatin 40 mg tablet 40 mg PO BEDTIME levetiracetam 500 mg tablet 500 mg PO BID sertraline 100 mg tablet 150 mg PO QAM quetiapine 100 mg tablet 100 mg PO DAILY acetaminophen 650 mg tablet extended release 650 mg PO TID warfarin 2 mg tablet PO metoprolol tartrate 50 mg tablet 50 mg PO BID aspirin 81 mg tablet,chewable 1 tab PO DAILY norethindrone (contraceptive) 0.35 mg tablet 0.35 mg PO DAILY aripiprazole 2 mg tablet 2 mg PO QAM Interventions: [place]-Suicide Risk Severity Scale Last Done: 01/26/24 10:48 Print Language: Uzbek
[2024-01-26 10:28] VITALS: BP 106/60; PULSE 87; O2SAT 95
[2024-01-26 10:29] VITALS: BP 114/67; PULSE 85; RESP 18; TEMP 36.6; O2SAT 100; BMI 23.6
--- NOTE | 2024-01-26 10:40 | PC.NURSE ---
Patient was BIBA on a section 12 for suicidal ideations with plan to overdose on her medications. The patient denies homicidal ideations at this time. The patient denies auditory and visual hallucinations at this time. Patient presents indifferent to staff, avoiding eye contact and responding to questions with short answers in a low volume of voice. Patient was changed over with a member of security and unit staff, complied with labs and was shown her room. The patient lied down in bed and went to sleep. Will continue plan of care.
[2024-01-26 10:41] LABS: MANUAL DIFF FLAG NO
[2024-01-26 10:46] VITALS: BP 114/67; PULSE 85; RESP 18; TEMP 36.6; O2SAT 100
[2024-01-26 10:48] LABS: Appearance Urine Clear; Color Urine Yellow; Glucose Urine UA Negative (Negative); Leukocyte Esterase Urine Negative (Negative); Nitrite Urine Negative (Negative); PH 6.5 (5.0-9.0); Urine Blood Negative (Negative); Urine Ketones Negative (Negative); Urine Protein Negative (Neg-Trace)
[2024-01-26 10:50] LABS: Basophils Percent Auto 0.5 % (0-2); Eosinophils Absolute Auto 0.1 X10*3/uL (0.0-0.4); Eosinophils Percent Auto 1.4 % (0-4); Hematocrit 29.4 % (37.0-47.0); Hemoglobin 10.6 g/dl (12.0-16.0); Imm Gran Abs Auto 0.01 X10*3/uL (0.00-0.03); Imm Gran Pct Auto 0.2 % (0.0-0.4); Lymphocytes Absolute Auto 1.3 X10*3/uL (1.2-4.9); Lymphocytes Percent Auto 31.7 % (20-40); Mean Corpuscular HGB Conc 36.1 g/dl (31.0-35.0); Mean Corpuscular Hemoglobin 27.1 pg (27.0-33.0); Mean Corpuscular Volume 75.2 fL (80.0-98.0); Monocytes Absolute Auto 0.5 X10*3/uL (0.1-1.2); Neutrophils Absolute Auto 2.3 x10*3/uL (2.0-8.3); Neutrophils Percent Auto 54.2 % (45-73); Platelet Count 203 X10*3/uL (160-400); Red Blood Count 3.91 X10*6/uL (4.20-5.50); Red Cell Distribution Width 14.3 % (11.0-16.0); White Blood Count 4.2 X10*3/uL (4.8-10.8)
[2024-01-26 11:03] LABS: Amphetamine Screen Urine Not Detected (Not Detect); Barbiturates, Urine Not Detected (Not Detect); Benzodiazepines Screen Urine Not Detected (Not Detect); Buprenorphine Scr Not Detected (Not Detect); Cannabinoid Screen Urine Not Detected (Not Detect); Cocaine Screen Urine Not Detected (Not Detect); Fentanyl, urine Not Detected (Not Detect); Methadone Screen, Urine Not Detected (Not Detect); Opiate Screen Urine Not Detected (Not Detect); Oxycodone Screen Urine Not Detected (Not Detect); Phencyclidine Screen Urine Not Detected (Not Detect)
[2024-01-26 11:09] LABS: Alanine Aminotransferase 13 U/L (0-31); Albumin Level 4.1 g/dL (3.5-5.0); Alkaline Phosphatase 42 U/L (39-117); Anion Gap 12 (12-20); Aspartate Amino Transferase 19 U/L (5-31); Bilirubin Total 0.5 mg/dL (0.0-1.0); Blood Urea Nitrogen 7 mg/dL (9-16); Calcium 9.3 mg/dL (8.4-10.2); Carbon Dioxide 25 mmol/L (22-29); Chloride 105 mmol/L (96-108); Creatinine Clr Calc Pharmacy 86.7; Estimated Glomerular Filt Rate > 60; Ethanol < 10 mg/dL; Glucose Random 86 mg/dL (60-115); Potassium 3.5 mmol/L (3.3-5.1); Sodium 138 mmol/L (135-145); Total Protein 7.3 g/dL (6.5-8.0)
[2024-01-26 11:16] LABS: COVID-19 Test Negative (Negative); IDNOW Serial# 08D9AD1C
[2024-01-26 13:01] LABS: INTERNATIONAL NORM RATIO 2.6 (0.9-1.1); Prothrombin Time 31.8 SEC (11.1-13.3)
[2024-01-26 15:28] VITALS: BP 104/72; PULSE 81; RESP 16; TEMP 37.5; O2SAT 100
[2024-01-26] MEDS: Warfarin Sodium 4 MG TABLET PO (17:51)
--- NOTE | 2024-01-26 17:59 | MHC.CARE ---
Patient refused to engage in the interview process. Per collateral contact with family and psychiatric provider patient made clear suicidal statements with plan and intention, she is at imminent risk and should not be discharged. She will remain in the ED until inpatient psychiatric placement is secured. ED Provider, Dr. Cooper updated
[2024-01-26] MEDS: Atorvastatin Calcium 40 MG TABLET PO (21:27)
[2024-01-26] MEDS: Metoprolol Tartrate 50 MG TABLET PO (21:28)
[2024-01-26] MEDS: levETIRAcetam 500 MG TABLET PO (21:28)
[2024-01-26 21:57] VITALS: BP 113/65; PULSE 79; RESP 17; TEMP 36.8; O2SAT 98
--- NOTE | 2024-01-27 | ECG_ITS ---
Test Reason : check qt Blood Pressure : / mmHG Vent. Rate : 066 BPM Atrial Rate : 066 BPM P-R Int : 164 ms QRS Dur : 084 ms QT Int : 422 ms P-R-T Axes : 022 082 056 degrees QTc Int : 442 ms Normal sinus rhythm Normal ECG When compared with ECG of 31-DEC-2023 17:39, No significant change was found Referred By: Kings Cooper Electronically Signed By:Jacky Moran
[2024-01-27 06:27] LABS: INTERNATIONAL NORM RATIO 2.4 (0.9-1.1); Prothrombin Time 28.7 SEC (11.1-13.3)
[2024-01-27 06:37] VITALS: BP 101/63; PULSE 66; RESP 15; TEMP 37; O2SAT 99
[2024-01-27 09:33] VITALS: BP 108/70; PULSE 75; RESP 16; TEMP 36.6; O2SAT 99
[2024-01-27] MEDS: ARIPiprazole 2 MG TABLET PO (09:33)
[2024-01-27] MEDS: levETIRAcetam 500 MG TABLET PO ×2 (09:33→20:57)
[2024-01-27] MEDS: Aspirin 81 MG TAB.CHEW PO (09:33)
[2024-01-27] MEDS: Metoprolol Tartrate 50 MG TABLET PO ×2 (09:33→20:57)
[2024-01-27] MEDS: Sertraline HCL 50 MG TABLET 150 MG PO (09:33)
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
--- NOTE | 2024-01-27 09:47 | PC.NURSE ---
Assumed care of patient at 0645. Patient is observed resting in her bed. No signs of distress observed. Breathing is even and unlabored. Will continue plan of care.
[2024-01-27 12:35] VITALS: BP 108/73; PULSE 64; RESP 16; TEMP 36.5; O2SAT 98
[2024-01-27 13:07] VITALS: BMI 23.0
[2024-01-27] MEDS: Warfarin Sodium 4 MG TABLET PO (18:55)
[2024-01-27 19:42] VITALS: BP 115/63; PULSE 76; TEMP 36.3; O2SAT 98
--- NOTE | 2024-01-27 19:46 | PC.ADMIT ---
pt arrived on the unit @ 1235 via wheel chair. Safety/skin check performed, vitals obtained and 12b signed. Tox screen negative. Pt refused to participate in admission assessment and asked nurse to lay down. Pt has been resting for duration of shift. Pt is guarded, withdrawn, and mostly quiet. Per crisis eval, pt had a mechanical valve replacement in September and family reports she has not been the same since. Family reports she is increasingly depressed and reported to family wanting to OD on her Coumadin in order to complete suicide. Pt will have daily (0600) PT/INR. Safety tool to be completed and signed. Pt is on 15min checks for safety.
[2024-01-27] MEDS: Acetaminophen 325 MG TABLET 650 MG PO (20:56)
[2024-01-27] MEDS: Atorvastatin Calcium 40 MG TABLET PO (20:56)
[2024-01-28 08:00] VITALS: BP 117/78; PULSE 64; RESP 16; TEMP 37.2; O2SAT 98
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
[2024-01-28] MEDS: Metoprolol Tartrate 50 MG TABLET PO ×2 (08:24→22:03)
[2024-01-28] MEDS: ARIPiprazole 2 MG TABLET PO (08:24)
[2024-01-28] MEDS: levETIRAcetam 500 MG TABLET PO ×2 (08:25→22:03)
[2024-01-28] MEDS: Aspirin 81 MG TAB.CHEW PO (08:25)
[2024-01-28] MEDS: Sertraline HCL 50 MG TABLET 150 MG PO (08:25)
[2024-01-28 08:36] LABS: INTERNATIONAL NORM RATIO 2.6 (0.9-1.1); Prothrombin Time 32.2 SEC (11.1-13.3)
[2024-01-28 08:39] LABS: Estimated Average Glucose 103 mg/dL; Hemoglobin A1c % 5.2 % (<6.0)
[2024-01-28 08:46] LABS: Cholesterol 131 mg/dL (<200); HDL Cholesterol 50 mg/dL (>40); LDL Cholesterol Calculated 74 mg/dL (<100); Triglycerides 36 mg/dL (<150)
[2024-01-28] MEDS: Warfarin Sodium 6 MG TABLET PO (18:27)
[2024-01-28 21:50] VITALS: BP 110/74; PULSE 77; TEMP 36.8
[2024-01-28] MEDS: Atorvastatin Calcium 40 MG TABLET PO (22:03)
[2024-01-29 08:00] VITALS: BP 98/63; PULSE 68; RESP 16; TEMP 36.6; O2SAT 98
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
[2024-01-29] MEDS: buPROPion HCl XL 150 MG TAB.ER.24H PO (09:46)
[2024-01-29] MEDS: Aspirin 81 MG TAB.CHEW PO (09:46)
[2024-01-29] MEDS: Sertraline HCL 50 MG TABLET 150 MG PO (09:47)
[2024-01-29] MEDS: Acetaminophen 325 MG TABLET 650 MG PO (09:47)
[2024-01-29] MEDS: hydrOXYzine HCL 25 MG TABLET PO (09:47)
[2024-01-29] MEDS: levETIRAcetam 500 MG TABLET PO ×2 (09:47→22:46)
[2024-01-29 11:06] LABS: INTERNATIONAL NORM RATIO 3.3 (0.9-1.1); Prothrombin Time 40.6 SEC (11.1-13.3)
[2024-01-29] MEDS: Warfarin Sodium 4 MG TABLET PO (18:21)
[2024-01-29 20:00] VITALS: BP 139/94; PULSE 83; RESP 18; TEMP 36.7; O2SAT 98
[2024-01-29 22:45] VITALS: BP 139/84; PULSE 83
[2024-01-29] MEDS: Atorvastatin Calcium 40 MG TABLET PO (22:45)
[2024-01-29] MEDS: Metoprolol Tartrate 50 MG TABLET PO (22:45)
[2024-01-30 07:49] LABS: INTERNATIONAL NORM RATIO 3.5 (0.9-1.1); Prothrombin Time 42.5 SEC (11.1-13.3)
[2024-01-30 08:00] VITALS: BP 150/80; PULSE 85; RESP 16; TEMP 36.3; O2SAT 100
[2024-01-30 08:58] VITALS: BP 150/80; PULSE 85
[2024-01-30] MEDS: Metoprolol Tartrate 50 MG TABLET PO ×2 (08:58→19:58)
[2024-01-30] MEDS: Sertraline HCL 50 MG TABLET 150 MG PO (08:58)
[2024-01-30] MEDS: buPROPion HCl XL 150 MG TAB.ER.24H PO (08:59)
[2024-01-30] MEDS: Aspirin 81 MG TAB.CHEW PO (08:59)
[2024-01-30] MEDS: levETIRAcetam 500 MG TABLET PO ×2 (08:59→19:58)
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
[2024-01-30] MEDS: Warfarin Sodium 4 MG TABLET PO (18:11)
[2024-01-30 19:54] VITALS: BP 124/73; PULSE 90; RESP 16; TEMP 36.6; O2SAT 99
[2024-01-30 19:58] VITALS: BP 124/73; PULSE 90
[2024-01-30] MEDS: Atorvastatin Calcium 40 MG TABLET PO (19:58)
[2024-01-31 08:00] VITALS: BP 105/65; PULSE 66; RESP 16; TEMP 36.6; O2SAT 100
[2024-01-31 08:15] LABS: INTERNATIONAL NORM RATIO 4.2 (0.9-1.1); Prothrombin Time 51.3 SEC (11.1-13.3)
[2024-01-31] MEDS: Sertraline HCL 50 MG TABLET 150 MG PO (08:22)
[2024-01-31] MEDS: Aspirin 81 MG TAB.CHEW PO (08:23)
[2024-01-31] MEDS: buPROPion HCl XL 150 MG TAB.ER.24H PO ×2 (08:23→12:39)
[2024-01-31] MEDS: levETIRAcetam 500 MG TABLET PO ×2 (08:23→22:06)
[2024-01-31] MEDS: Metoprolol Tartrate 50 MG TABLET PO ×2 (08:23→22:06)
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
[2024-01-31] MEDS: Milk of Magnesia 30 ML ORAL.SUSP PO (12:42)
[2024-01-31 20:00] VITALS: BP 109/75; PULSE 71; RESP 18; TEMP 36.6; O2SAT 98
[2024-01-31 22:06] VITALS: BP 109/75; PULSE 71
[2024-01-31] MEDS: Atorvastatin Calcium 40 MG TABLET PO (22:07)
[2024-02-01 08:00] VITALS: BP 116/65; PULSE 62; RESP 16; TEMP 36.9; O2SAT 99
[2024-02-01 08:00] LABS: INTERNATIONAL NORM RATIO 3.7 (0.9-1.1); Prothrombin Time 45.1 SEC (11.1-13.3)
[2024-02-01] MEDS: buPROPion HCl XL 300 MG TAB.ER.24H PO (09:29)
[2024-02-01] MEDS: Aspirin 81 MG TAB.CHEW PO (09:29)
[2024-02-01] MEDS: Sertraline HCL 50 MG TABLET 150 MG PO (09:29)
[2024-02-01] MEDS: levETIRAcetam 500 MG TABLET PO ×2 (09:31→21:31)
[2024-02-01] MEDS: Metoprolol Tartrate 50 MG TABLET PO ×2 (09:31→21:31)
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
[2024-02-01] MEDS: Warfarin Sodium 4 MG TABLET PO (18:30)
[2024-02-01 20:00] VITALS: BP 108/65; PULSE 73; RESP 15; TEMP 36.5
[2024-02-01 21:31] VITALS: BP 108/65; PULSE 73
[2024-02-01] MEDS: Atorvastatin Calcium 40 MG TABLET PO (21:31)
[2024-02-01] MEDS: traZODone HCL 50 MG TABLET PO (22:11)
[2024-02-02 08:43] LABS: INTERNATIONAL NORM RATIO 2.6 (0.9-1.1); Prothrombin Time 31.8 SEC (11.1-13.3)
[2024-02-02 09:50] VITALS: BP 91/62; PULSE 63; RESP 18; TEMP 36.4; O2SAT 99
[2024-02-02 09:52] VITALS: BP 91/62; PULSE 63
[2024-02-02] MEDS: Metoprolol Tartrate 50 MG TABLET PO ×2 (09:52→22:23)
[2024-02-02] MEDS: levETIRAcetam 500 MG TABLET PO ×2 (09:52→22:24)
[2024-02-02] MEDS: Aspirin 81 MG TAB.CHEW PO (09:52)
[2024-02-02] MEDS: buPROPion HCl XL 300 MG TAB.ER.24H PO (09:52)
[2024-02-02] MEDS: Sertraline HCL 50 MG TABLET 150 MG PO (09:52)
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
[2024-02-02] MEDS: Warfarin Sodium 4 MG TABLET PO (18:39)
[2024-02-02 20:00] VITALS: BP 90/50; PULSE 71; RESP 15; TEMP 36.7; O2SAT 100
[2024-02-02] MEDS: Atorvastatin Calcium 40 MG TABLET PO (22:23)
[2024-02-03 07:00] VITALS: BMI 22.8
[2024-02-03 08:00] VITALS: BP 104/68; PULSE 62; RESP 16; TEMP 36.4; O2SAT 100
[2024-02-03 08:18] LABS: INTERNATIONAL NORM RATIO 2.2 (0.9-1.1); Prothrombin Time 26.7 SEC (11.1-13.3)
[2024-02-03] MEDS: Sertraline HCL 50 MG TABLET 150 MG PO (09:02)
[2024-02-03] MEDS: levETIRAcetam 500 MG TABLET PO ×2 (09:02→21:02)
[2024-02-03] MEDS: Aspirin 81 MG TAB.CHEW PO (09:02)
[2024-02-03] MEDS: Metoprolol Tartrate 50 MG TABLET PO ×2 (09:03→21:02)
[2024-02-03] MEDS: buPROPion HCl XL 300 MG TAB.ER.24H PO (09:03)
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
[2024-02-03] MEDS: Warfarin Sodium 4 MG TABLET PO (18:07)
[2024-02-03] MEDS: Milk of Magnesia 30 ML ORAL.SUSP PO (18:37)
[2024-02-03 20:00] VITALS: BP 96/52; PULSE 66; RESP 17; TEMP 37.5; O2SAT 98
[2024-02-03] MEDS: Atorvastatin Calcium 40 MG TABLET PO (21:03)
[2024-02-03] MEDS: traZODone HCL 50 MG TABLET PO (21:04)
[2024-02-04 08:23] LABS: Prothrombin Time 24.8 SEC (11.1-13.3)
[2024-02-04] MEDS: buPROPion HCl XL 300 MG TAB.ER.24H PO (09:37)
[2024-02-04] MEDS: Aspirin 81 MG TAB.CHEW PO (09:37)
[2024-02-04] MEDS: levETIRAcetam 500 MG TABLET PO (09:37)
[2024-02-04] MEDS: Sertraline HCL 50 MG TABLET 150 MG PO (09:37)
[2024-02-04 09:38] VITALS: BP 90/52; PULSE 57
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
== END 2024-02-04 11:47 | disposition home or self-care (01) | DRG 751 ==
LOC: HO.ED 12:44 → HO.PM5 01-27 11:32
PROVIDERS: Admitting Provider Psychiatry & Neurology Psychiatry; Emergency Provider Emergency Medicine; PCP Internal Medicine; Visit Provider Psychiatry & Neurology Psychiatry
DX: F33.2 Major depressive disorder, recurrent severe without psychotic features (principal); R45.851 Suicidal ideations; G40.909 Epilepsy, unspecified, not intractable, without status epilepticus; F43.10 Post-traumatic stress disorder, unspecified; Z20.822 Contact with and (suspected) exposure to COVID-19; Z95.2 Presence of prosthetic heart valve; Z79.01 Long term (current) use of anticoagulants; Z79.82 Long term (current) use of aspirin; Z79.899 Other long term (current) drug therapy
CPT/HCPCS: 36415; 80053; 80061; 80307; 81003; 83036; 85025; 85610; 87635; 93005; 99285; S9485

== ENCOUNTER → 2024-01-27 09:41 | Outpatient (BNV) | payer OTHER, SELFPAY | PROVIDERS: Admitting Provider Psychiatry & Neurology Psychiatry; Emergency Provider Emergency Medicine; PCP Internal Medicine; Visit Provider Internal Medicine Cardiovascular Disease | DX: R45.851 Suicidal ideations (principal) | CPT/HCPCS: 93010 ==

== ENCOUNTER → 2024-01-27 11:24 | Outpatient (BNV) | payer OTHER, SELFPAY | PROVIDERS: Admitting Provider Psychiatry & Neurology Psychiatry; Emergency Provider Emergency Medicine; PCP Internal Medicine; Visit Provider Psychiatry & Neurology Psychiatry | DX: F33.2 Major depressive disorder, recurrent severe without psychotic features (principal); F43.11 Post-traumatic stress disorder, acute; G40.909 Epilepsy, unspecified, not intractable, without status epilepticus; Z95.2 Presence of prosthetic heart valve | CPT/HCPCS: 90792; 99231; 99232; 99239 ==

== ENCOUNTER 2024-03-21 10:11 | Outpatient (AMB) | payer OTHER, SELFPAY ==
[2024-03-21 10:14] VITALS: BP 104/70; PULSE 72; TEMP 36.6; O2SAT 99; BMI 23.6
--- NOTE | 2024-03-21 10:14 | AM.OFFWIN_ITS ---
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 patient also states she has right leg pain denies injury Patient Tobacco Use Status: Never used Tobacco Allergies lamotrigine [From Lamictal] Allergy (Verified 03/21/24 10:15) Rash Medication List - Last Reconciled 03/21/24 by Mireya Ziegler, MANAN acetaminophen 650 mg (2 x 325 mg) PO Q6H PRN aripiprazole 2 mg PO QAM 30 days aripiprazole (Abilify) 2 mg PO BEDTIME 30 days aspirin 1 tab PO DAILY atorvastatin 40 mg PO BEDTIME bupropion HCl XL (Wellbutrin XL) 300 mg PO QAM 30 days bupropion HCl XL 300 mg PO DAILY 30 days levetiracetam 500 mg PO BID metoprolol tartrate 50 mg PO BID norethindrone (contraceptive) 0.35 mg PO DAILY sertraline (Zoloft) 150 mg (1.5 x 100 mg) PO DAILY 30 days sertraline 150 mg (1.5 x 100 mg) PO QAM 30 days trazodone 50 mg PO BEDTIME PRN 30 days warfarin (Jantoven) 4 mg PO SuTuWeThSa@1800 warfarin (Jantoven) 6 mg PO MoFr@1800 Do you need a note to return to daycare/school/sports/work: No HPI 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 While every effort has been made to ensure accuracy, cullet crusher errors may have been included. 54-year-old female presents with 2 day h istory of right upper and lower leg pain as well as right eye redness. She notes that she woke up overnight and had pain in her leg, had had no injury to the area, no previous surgery. This has not limited her ability to move the limb, her strength, and she has had no numbness or tingling. She describes the pain as a dull ache, which she reports to feel deep within the leg. In terms of the eye, she noticed yesterday that the lateral portion of the sclera of the right eye was erythematous, has no discharge, is tender at rest, no pain with movement, no itch. She has been on Coumadin since August after she had a mechanical valve placement, and continues to have weekly INR monitoring. [facility] Medical History (Updated 02/12/24 @ 00:02 by Background Daemon) History of mitral valve disorder PTSD (post-traumatic stress disorder) MDD (major depressive disorder), recurrent severe, without psychosis Endometrial polyp Heavy menstrual bleeding Fibroids Seizure disorder Anxiety Surgical History (Updated 02/12/24 @ 00:02 by Background Daemon) Mitral valve replaced Family History Paternal Aunt Breast cancer Social History Household Members: Other Housing: Apartment Alcohol intake: never Patient Tobacco Use Status: Never used Tobacco service: No Sexual orientation: Straight/Heterosexual Review of Systems Const All systems reviewed & are unremarkable except as noted in HPI and below Physical Exam Vital Signs: Last Vital Signs Temp 97.8 F 03/21/24 10:14 Pulse 72 03/21/24 10:14 BP 104/70 03/21/24 10:14 Pulse Ox 99 03/21/24 10:14 BMI result Body Mass Index 23.6 Const General: cooperative, healthy appearing, comfortable, no acute distress and well developed HEENT Head: Yes normal to inspection and Yes normocephalic Ears: hearing grossly normal bilaterally General nose exam: Normal external nose present Face and sinus: Yes normal facial exam and Yes sinuses nontender Eyes Alignment and Position: alignment normal Periorbital: periorbital findings normal Eyelids: Yes eyelids normal Sclerae: scleral abnormal right hemorrhage (subconjunctival) Pupils: Equal, round and reactive pupils present EOM: EOMs intact bilaterally Direct Ophthalmoscopy: normal light reflex Cardio Peripheral pulses: other (Negative Homans sign) Neuro Cranial nerves: Yes Equal, round and reactive pupils present Extrem General: Yes normal to inspection, Yes full ROM and Yes capillary refill normal Right lower extremity: normal to inspection, full ROM, normal capillary refill and no joint enlargement; no cyanosis and no edema Assessment & Plan Assessment & Plan (1) Subconjunctival hemorrhage of right eye: Code(s): H11.31 - Conjunctival hemorrhage, right eye Plan: Supportive measures encouraged and reviewed including use of ice pack for reduction in swelling and pain. May use acetaminophen for pain if medication is needed. Advised avoidance of NSAIDs in setting of use of Coumadin. If persistent, may follow with Optometry or Ophthalmology for evaluation. Advised to follow with Ophthalmology with any loss of vision. Continue to follow PCP for chronic monitoring of Coumadin, especially in setting of hemorrhage should they continue to recur or become bothersome. (2) Right leg pain: Code(s): M79.604 - Pain in right leg Plan: Appears to be muscular strain. Encouraged use of acetaminophen for pain. Physical examination otherwise unremarkable, no concern for DVT in setting of Coumadin as well as exam. Advised follow-up with worsening symptoms or failure to resolve. Plan See above for full details and plan. Coding Level of Care Code New Pt Level 4 (03552) Diagnoses Subconjunctival hemorrhage of right eye H11.31 Right leg pain M79.604
== END 2024-03-21 10:49 | disposition home or self-care (01) ==
PROVIDERS: PCP Internal Medicine; Visit Provider Registered Nurse
DX: H11.31 Conjunctival hemorrhage, right eye (principal); M79.604 Pain in right leg
CPT/HCPCS: 99202